=== PATIENT | male | born 1975 | race Two or more races ===

== ENCOUNTER 2021-05-16 15:10 | Emergency (ER) | payer MEDICAID ==
[~2021-05-16] VITALS: Ht 177.8 cm; Wt 113.4 kg
[2021-05-16 16:10] LABS: Basophils # (auto) 0.1 10 ^3/uL (0-0.2); Basophils % (auto) 0.4 % (0.0-2.0); Eosinophils # (auto) 0.1 10 ^3/uL (0-0.8); Eosinophils % (auto) 0.9 % (0.0-7.0); Hematocrit 47.4 % (41.0-53.0); Hemoglobin 15.8 g/dL (13.5-17.5); Lymphocytes # (auto) 2.1 10 ^3/uL (0.4-5.4); Lymphocytes % (auto) 16.4 % (10.0-50.0); Mean Corpuscular Hemoglobin 30.9 pg (28.0-32.0); Mean Corpuscular Hgb Conc. 33.4 g/dL (32.0-36.0); Mean Corpuscular Volume 92.6 fL (80.0-100.0); Monocytes # (auto) 1.1 10 ^3/uL (0-1.3); Monocytes % (auto) 8.3 % (0.0-12.0); Neutrophils # (auto) 9.7 10 ^3/uL (1.6-8.6); Red Blood Cells 5.12 10^6/uL (4.5-5.90); Red Cell Distribution Width 13.1 % (11.8-14.3); White Blood Cell 13.1 10^3/uL (4.4-10.8)
[2021-05-16 16:24] LABS: Albumin 3.4 g/dL (3.4-5.0); Calcium 9.1 mg/dL (8.5-10.1); Potassium 4.3 mmol/L (3.5-5.1)
[2021-05-16 16:27] LABS: BUN/Creatinine Ratio 15.5; Bilirubin, Total 0.3 mg/dL (0.2-1.0); Total Protein 7.4 g/dL (6.4-8.2)
[2021-05-16 18:35] VITALS: BP 152/100
== END 2021-05-16 19:27 | disposition home or self-care (01) ==
LOC: ER 15:10
DX: R10.32 Left lower quadrant pain (principal); D72.829 Elevated white blood cell count, unspecified; F17.210 Nicotine dependence, cigarettes, uncomplicated
CPT/HCPCS: 36415; 74176; 80053; 83690; 85025

== ENCOUNTER 2022-04-21 10:51 | Inpatient (IN) | payer MEDICAID ==
[2022-04-21] VITALS (13 sets, daily range): BP systolic 91–109; BP diastolic 56–75
[~2022-04-21] VITALS: Ht 182.9 cm; Wt 102.9 kg
[2022-04-21] MEDS ORDERED: ACETAMINOPHEN 500 MG TAB PO ONE ×2 (11:30→21:11)
[2022-04-21] MEDS ORDERED: SODIUM CHLORIDE 0.9% 1,000 ML IV ONE (12:00)
[2022-04-21 12:15] LABS: Basophils # (auto) 0 10 ^3/uL (0-0.2); Basophils % (auto) 0.4 % (0.0-2.0); Eosinophils # (auto) 0 10 ^3/uL (0-0.8); Hematocrit 48.2 % (41.0-53.0); Hemoglobin 15.1 g/dL (13.5-17.5); Lymphocytes # (auto) 1.1 10 ^3/uL (0.4-5.4); Lymphocytes % (auto) 24.9 % (10.0-50.0); Mean Corpuscular Hemoglobin 29.1 pg (28.0-32.0); Mean Corpuscular Hgb Conc. 31.5 g/dL (32.0-36.0); Mean Corpuscular Volume 92.4 fL (80.0-100.0); Monocytes # (auto) 0.6 10 ^3/uL (0-1.3); Monocytes % (auto) 14.2 % (0.0-12.0); Neutrophils # (auto) 2.6 10 ^3/uL (1.6-8.6); Neutrophils % (auto) 60.5 % (37.0-80.0); Nucleated Red Blood Cells % 0.2 %; Red Blood Cells 5.21 10^6/uL (4.5-5.90); Red Cell Distribution Width 13.5 % (11.8-14.3); White Blood Cell 4.2 10^3/uL (4.4-10.8)
[2022-04-21 12:18] LABS: Albumin 3.2 g/dL (3.4-5.0); Calcium 8.1 mg/dL (8.5-10.1); Magnesium 2.1 mg/dL (1.6-2.6); Potassium 3.7 mmol/L (3.5-5.1)
[2022-04-21 12:22] LABS: BUN/Creatinine Ratio 11.4; Bilirubin, Total 0.4 mg/dL (0.2-1.0); Total Protein 7.3 g/dL (6.4-8.2)
[2022-04-21 13:09] LABS: Urine Bacteria FEW /hpf (None Seen); Urine Blood 1+ /uL (Negative); Urine Mucus FEW (None Seen); Urine Specific Gravity 1.023 (1.001-1.035); Urine WBC 1 /hpf (0 - 3)
[2022-04-21] MEDS ORDERED: ENOXAPARIN SOD 60 MG/0.6 ML SYRINGE SC ONE (13:15)
[2022-04-21] MEDS: FUROSEMIDE 20 MG/2 ML VIAL IV ONE ×2 (13:15→13:56)
[2022-04-21] MEDS ORDERED: ASPirin-EC 81 mg tab PO ONE (13:15)
[2022-04-21 13:22] LABS: INR 0.98 (0.9-1.15); Partial Thromboplastin Time 28.2 sec (24.6-33.4)
[2022-04-21 13:29] LABS: Alcohol, Urine < 3.0 mg/dL (0-10); Amphetamine Screen, Urine NEGATIVE (NEGATIVE); Barbiturate Scree,Urine NEGATIVE (NEGATIVE); Benzodiazephine Screen, Urine NEGATIVE (NEGATIVE); Cannabinoid Screen, Urine POSITIVE (NEGATIVE); Cocaine Screen, Urine NEGATIVE (NEGATIVE); Opiate Scree,Urine NEGATIVE (NEGATIVE); Phencyclidine Screen, Urine NEGATIVE (NEGATIVE)
[2022-04-21] MEDS ORDERED: REMDESIVIR PER PHARMACY 0 ML IV SCH (14:30)
[2022-04-21] MEDS: SODIUM CHLORIDE 0.9% 1,000 ML IV SCH (14:57)
[2022-04-21] MEDS ORDERED: REMDESIVIR 200 MG in NS 210ml LOADING DOSE ADULT IV ONE (15:00)
[2022-04-21 15:01] LABS: Lactic Acid w/Reflex 2.2 mmol/L (0.4-2.0)
[2022-04-21] MEDS: REMDESIVIR 100mg 100 MG in SODIUM CHL 0.9% 230 ML IV SCH (16:18)
[2022-04-21] MEDS: ALBUTEROL SULF HFA 90MCG INH 200DOSE IN PRN ×2 (16:43→22:03)
[2022-04-21] MEDS ORDERED: METH10T PO (18:53)
[2022-04-21] MEDS: ACETAMINOPHEN 500 MG TAB PO PRN (21:16)
[2022-04-21] MEDS: BUDESONIDE (INHALATION) 180 MCG IH IN SCH (22:03)
[2022-04-21] MEDS: ENOXAPARIN SOD 40 MG/0.4 ML SYRINGE SC SCH (22:03)
[2022-04-21] MEDS ORDERED: FLUO60TA7 PO (22:42)
[2022-04-21] MEDS ORDERED: CLOZ25TA PO (22:42)
[2022-04-21] MEDS ORDERED: ATOR20TA50 PO (22:42)
[2022-04-22] VITALS (28 sets, daily range): BP systolic 90–116; BP diastolic 56–75
[2022-04-22 04:06] LABS: Basophils # (auto) 0 10 ^3/uL (0-0.2); Basophils % (auto) 0.2 % (0.0-2.0); Eosinophils # (auto) 0 10 ^3/uL (0-0.8); Hematocrit 46.2 % (41.0-53.0); Hemoglobin 14.6 g/dL (13.5-17.5); Lymphocytes # (auto) 1.6 10 ^3/uL (0.4-5.4); Lymphocytes % (auto) 35.5 % (10.0-50.0); Mean Corpuscular Hemoglobin 28.9 pg (28.0-32.0); Mean Corpuscular Hgb Conc. 31.6 g/dL (32.0-36.0); Mean Corpuscular Volume 91.3 fL (80.0-100.0); Monocytes # (auto) 0.2 10 ^3/uL (0-1.3); Monocytes % (auto) 5.6 % (0.0-12.0); Neutrophils # (auto) 2.6 10 ^3/uL (1.6-8.6); Neutrophils % (auto) 58.7 % (37.0-80.0); Nucleated Red Blood Cells % 0.1 %; Red Blood Cells 5.06 10^6/uL (4.5-5.90); Red Cell Distribution Width 13.5 % (11.8-14.3); White Blood Cell 4.4 10^3/uL (4.4-10.8)
[2022-04-22 04:13] LABS: Albumin 2.7 g/dL (3.4-5.0); Calcium 7.8 mg/dL (8.5-10.1); Potassium 3.8 mmol/L (3.5-5.1)
[2022-04-22 04:15] LABS: BUN/Creatinine Ratio 18.2
[2022-04-22 04:18] LABS: Bilirubin, Total 0.6 mg/dL (0.2-1.0); Total Protein 6.3 g/dL (6.4-8.2)
[2022-04-22] MEDS ORDERED: FUROSEMIDE 20 MG/2 ML VIAL IV ONE ×2 (10:00→16:45)
[2022-04-22] MEDS: ZINC SULFATE 220mg CAP or TAB PO SCH (10:00)
[2022-04-22] MEDS ORDERED: ENOXAPARIN SOD 40 MG/0.4 ML SYRINGE SC SCH (10:00)
[2022-04-22] MEDS: CHOLECALCIFEROL (VITD3) 2,000 UNIT CAP/TAB PO SCH (10:00)
[2022-04-22] MEDS: ASCORBIC ACID 1,000 MG TAB PO SCH (10:00)
[2022-04-22] MEDS: DexAMETHasone SOD PHOS 10MG/1ML VIAL INJ IV SCH (10:22)
[2022-04-22] MEDS: ENOXAPARIN SOD 40 MG/0.4 ML SYRINGE SC SCH ×2 (10:22→22:08)
[2022-04-22] MEDS: AZITHROMYCIN 500MG/ 250ML 250 ML IV SCH (10:23)
[2022-04-22] MEDS: SODIUM CHLORIDE 0.9% 1,000 ML IV SCH (10:23)
[2022-04-22] MEDS ORDERED: cefTRIAXone 1GM/50ML D5W 50 ML IV ONE (11:30)
[2022-04-22] MEDS ORDERED: VANCOMYCIN PER PHARMACY 0 MG IV SCH (11:30)
[2022-04-22] MEDS ORDERED: VANCOMYCIN 1GM/250ML 250 ML IV ONE (12:00)
[2022-04-22 14:01] LABS: Cholesterol 62 mg/dL (< 200); HDL Cholesterol 25 mg/dL (40-59); LDL Cholesterol 36 mg/dL (< 100); Triglycerides 71 mg/dL (< 150)
[2022-04-22] MEDS: REMDESIVIR 100mg 100 MG in SODIUM CHL 0.9% 230 ML IV SCH (15:39)
[2022-04-22] MEDS: ALBUTEROL SULF 2.5 MG/0.5ML(0.5%) NEB SOLN NEB SCH (18:09)
[2022-04-22] MEDS: IPRATROPIUM BROM 0.5 MG/2.5ML INH SOL NEB SCH (18:09)
[2022-04-22] MEDS: VANCOMYCIN 1GM/250ML 250 ML IV SCH (20:47)
[2022-04-22] MEDS: BUDESONIDE (INHALATION) 180 MCG IH IN SCH (22:00)
[2022-04-22] MEDS ORDERED: CLOZAPINE 100 MG PO SCH (22:00)
[2022-04-22] MEDS: ACETYLCYSTEINE 20%(200MG/ML) SOL 4ML NEB SCH (22:21)
[2022-04-22] MEDS: ALBUTEROL SULF 2.5 MG/0.5ML(0.5%) NEB SOLN NEB PRN (22:21)
[2022-04-23] VITALS (75 sets, daily range): BP systolic 90–161; BP diastolic 51–104
[2022-04-23] MEDS: ALBUTEROL SULF 2.5 MG/0.5ML(0.5%) NEB SOLN NEB SCH ×4 (00:18→19:05)
[2022-04-23] MEDS: IPRATROPIUM BROM 0.5 MG/2.5ML INH SOL NEB SCH ×4 (00:18→19:05)
[2022-04-23 04:17] LABS: Basophils # (auto) 0 10 ^3/uL (0-0.2); Basophils % (auto) 0.1 % (0.0-2.0); Eosinophils # (auto) 0 10 ^3/uL (0-0.8); Hematocrit 44.7 % (41.0-53.0); Lymphocytes # (auto) 1.3 10 ^3/uL (0.4-5.4); Lymphocytes % (auto) 18.9 % (10.0-50.0); Mean Corpuscular Hemoglobin 30.1 pg (28.0-32.0); Mean Corpuscular Hgb Conc. 33.5 g/dL (32.0-36.0); Monocytes # (auto) 0.5 10 ^3/uL (0-1.3); Monocytes % (auto) 7.2 % (0.0-12.0); Neutrophils # (auto) 5.1 10 ^3/uL (1.6-8.6); Neutrophils % (auto) 73.8 % (37.0-80.0); Nucleated Red Blood Cells % 0.1 %; Red Blood Cells 4.97 10^6/uL (4.5-5.90); Red Cell Distribution Width 13.1 % (11.8-14.3); White Blood Cell 6.9 10^3/uL (4.4-10.8)
[2022-04-23 04:40] LABS: Albumin 2.4 g/dL (3.4-5.0); BUN/Creatinine Ratio 28.1; Calcium 8.6 mg/dL (8.5-10.1); Potassium 3.8 mmol/L (3.5-5.1)
[2022-04-23 04:42] LABS: Bilirubin, Total 0.5 mg/dL (0.2-1.0); Total Protein 6.3 g/dL (6.4-8.2)
[2022-04-23] MEDS: VANCOMYCIN 1GM/250ML 250 ML IV SCH ×2 (05:14→14:16)
[2022-04-23] MEDS: ACETYLCYSTEINE 20%(200MG/ML) SOL 4ML NEB SCH ×3 (06:33→22:46)
[2022-04-23] MEDS: NOREPINEPHRINE 8 MG/250ML KIT 250 ML IV SCH (08:30)
[2022-04-23] MEDS ORDERED: fentaNYL Drip 2500mCg/250mlNS 250 ML IV SCH (08:30)
[2022-04-23] MEDS ORDERED: ROCURONIUM 10MG/ML 10ML VIAL IV ONE (08:30)
[2022-04-23] MEDS ORDERED: ETOMIDATE (2MG/ML) 20ML VIAL IV ONE (08:30)
[2022-04-23] MEDS ORDERED: PROPOFOL 100 ML IV ONE (09:19)
[2022-04-23] MEDS: BUDESONIDE (INHALATION) 180 MCG IH IN SCH ×2 (10:00→22:00)
[2022-04-23] MEDS: CLOZAPINE 100 MG PO SCH ×2 (10:00→22:00)
[2022-04-23] MEDS ORDERED: METHADONE HCL 10 MG TAB PO SCH (10:00)
[2022-04-23] MEDS ORDERED: PROPOFOL 200 ML IV ONE (10:19)
[2022-04-23] MEDS: MIDAZOLAM DRIP 50 mg/50mL 50 ML IV SCH ×3 (10:29→21:30)
[2022-04-23] MEDS: cefTRIAXone 1GM/50ML D5W 50 ML IV SCH (10:30)
[2022-04-23] MEDS: DexAMETHasone SOD PHOS 10MG/1ML VIAL INJ IV SCH (10:34)
[2022-04-23] MEDS: FUROSEMIDE 20 MG/2 ML VIAL IV SCH (10:35)
[2022-04-23] MEDS: AZITHROMYCIN 500MG/ 250ML 250 ML IV SCH (10:35)
[2022-04-23] MEDS: FLUoxetine HCL 20 MG CAP PO SCH (10:36)
[2022-04-23] MEDS: ZINC SULFATE 220mg CAP or TAB PO SCH (10:36)
[2022-04-23] MEDS: CHOLECALCIFEROL (VITD3) 2,000 UNIT CAP/TAB PO SCH (10:36)
[2022-04-23] MEDS: ATORVASTATIN 20 MG TAB PO SCH (10:36)
[2022-04-23] MEDS: ASCORBIC ACID 1,000 MG TAB PO SCH (10:36)
[2022-04-23] MEDS: ENOXAPARIN SOD 40 MG/0.4 ML SYRINGE SC SCH ×2 (10:37→22:00)
[2022-04-23] MEDS: PROPOFOL 100 ML IV SCH ×4 (10:45→21:30)
[2022-04-23] MEDS ORDERED: ATRACURIUM BESYLATE 1,000 MG in D5W 5% 150 ML IV SCH (13:00)
[2022-04-23] MEDS: ROCURONIUM 10MG/ML 10ML VIAL IV SCH ×3 (14:00→18:00)
[2022-04-23] MEDS: ROCURONIUM BROMIDE 1,000 MG in D5W 5% 150 ML IV SCH (14:15)
[2022-04-23] MEDS: fentaNYL Drip 2500mCg/250mlNS 250 ML IV SCH ×2 (14:16→17:13)
[2022-04-23] MEDS: REMDESIVIR 100mg 100 MG in SODIUM CHL 0.9% 230 ML IV SCH (17:16)
[2022-04-23] MEDS: SODIUM CHLOR 0.9% PF (SALINE LOCK) 10ML VIAL/SYR IV SCH (22:00)
[2022-04-23] MEDS: ALBUTEROL SULF 2.5 MG/0.5ML(0.5%) NEB SOLN NEB PRN (22:46)
[2022-04-24] VITALS (105 sets, daily range): BP systolic 83–125; BP diastolic 49–72
[2022-04-24] MEDS: PROPOFOL 100 ML IV SCH ×4 (00:39→23:37)
[2022-04-24] MEDS: IPRATROPIUM BROM 0.5 MG/2.5ML INH SOL NEB SCH ×4 (00:51→18:40)
[2022-04-24] MEDS: ALBUTEROL SULF 2.5 MG/0.5ML(0.5%) NEB SOLN NEB SCH ×4 (00:51→18:40)
[2022-04-24] MEDS: fentaNYL Drip 2500mCg/250mlNS 250 ML IV SCH ×2 (01:08→09:09)
[2022-04-24] MEDS: MIDAZOLAM DRIP 50 mg/50mL 50 ML IV SCH ×3 (01:30→23:00)
[2022-04-24] MEDS: VANCOMYCIN 1GM/250ML 250 ML IV SCH ×2 (03:00→13:51)
[2022-04-24] MEDS: ROCURONIUM BROMIDE 1,000 MG in D5W 5% 150 ML IV SCH (03:46)
[2022-04-24 04:41] LABS: Basophils # (auto) 0 10 ^3/uL (0-0.2); Basophils % (auto) 0.3 % (0.0-2.0); Eosinophils # (auto) 0 10 ^3/uL (0-0.8); Hematocrit 43.3 % (41.0-53.0); Hemoglobin 14.9 g/dL (13.5-17.5); Lymphocytes # (auto) 1.1 10 ^3/uL (0.4-5.4); Lymphocytes % (auto) 15.9 % (10.0-50.0); Mean Corpuscular Hemoglobin 30.7 pg (28.0-32.0); Mean Corpuscular Hgb Conc. 34.4 g/dL (32.0-36.0); Mean Corpuscular Volume 89.4 fL (80.0-100.0); Monocytes # (auto) 0.5 10 ^3/uL (0-1.3); Monocytes % (auto) 7.4 % (0.0-12.0); Neutrophils # (auto) 5.3 10 ^3/uL (1.6-8.6); Neutrophils % (auto) 76.4 % (37.0-80.0); Nucleated Red Blood Cells % 0.1 %; Red Blood Cells 4.85 10^6/uL (4.5-5.90); Red Cell Distribution Width 13.2 % (11.8-14.3); White Blood Cell 6.9 10^3/uL (4.4-10.8)
[2022-04-24 05:01] LABS: Albumin 2.3 g/dL (3.4-5.0); Calcium 8.2 mg/dL (8.5-10.1); Potassium 3.5 mmol/L (3.5-5.1)
[2022-04-24 05:04] LABS: BUN/Creatinine Ratio 26.9; Bilirubin, Total 0.7 mg/dL (0.2-1.0); Total Protein 5.8 g/dL (6.4-8.2)
[2022-04-24] MEDS: ACETYLCYSTEINE 20%(200MG/ML) SOL 4ML NEB SCH ×3 (06:13→18:40)
[2022-04-24] MEDS: NOREPINEPHRINE 8 MG/250ML KIT 250 ML IV SCH (08:30)
[2022-04-24] MEDS: cefTRIAXone 1GM/50ML D5W 50 ML IV SCH (09:04)
[2022-04-24] MEDS: ASCORBIC ACID 1,000 MG TAB PO SCH (09:06)
[2022-04-24] MEDS: FLUoxetine HCL 20 MG CAP PO SCH (09:06)
[2022-04-24] MEDS: ZINC SULFATE 220mg CAP or TAB PO SCH (09:06)
[2022-04-24] MEDS: CHOLECALCIFEROL (VITD3) 2,000 UNIT CAP/TAB PO SCH (09:06)
[2022-04-24] MEDS: SODIUM CHLOR 0.9% PF (SALINE LOCK) 10ML VIAL/SYR IV SCH ×2 (09:07→22:10)
[2022-04-24] MEDS: ATORVASTATIN 20 MG TAB PO SCH (09:07)
[2022-04-24] MEDS: PANTOPRAZOLE 40 MG/10 ML VIAL INJ IV SCH (09:07)
[2022-04-24] MEDS: DexAMETHasone SOD PHOS 10MG/1ML VIAL INJ IV SCH (09:07)
[2022-04-24] MEDS: FUROSEMIDE 20 MG/2 ML VIAL IV SCH (09:08)
[2022-04-24] MEDS: ENOXAPARIN SOD 40 MG/0.4 ML SYRINGE SC SCH ×2 (09:08→22:10)
[2022-04-24] MEDS: AZITHROMYCIN 500MG/ 250ML 250 ML IV SCH (09:08)
[2022-04-24] MEDS: CLOZAPINE 100 MG PO SCH ×2 (10:00→22:10)
[2022-04-24] MEDS: METHADONE HCL GT SCH (10:00)
[2022-04-24] MEDS: BUDESONIDE (INHALATION) 180 MCG IH IN SCH (10:00)
[2022-04-24] MEDS ORDERED: METO25TA93 PO (14:03)
[2022-04-24] MEDS ORDERED: FURO40TA4 PO (14:03)
[2022-04-24] MEDS ORDERED: FERR-20 PO (14:03)
[2022-04-24] MEDS ORDERED: OMEP20TA PO (14:03)
[2022-04-24] MEDS ORDERED: INSU1INJ19 SC (14:03)
[2022-04-24] MEDS ORDERED: SIMV-13 PO (14:03)
[2022-04-24] MEDS ORDERED: INSREG3 IV (14:03)
[2022-04-24] MEDS ORDERED: CIPR500T4 PO (14:03)
[2022-04-24] MEDS ORDERED: LISI-716 PO (14:03)
[2022-04-24] MEDS: ALBUTEROL SULF 2.5 MG/0.5ML(0.5%) NEB SOLN NEB PRN (14:51)
[2022-04-24] MEDS: REMDESIVIR 100mg 100 MG in SODIUM CHL 0.9% 230 ML IV SCH (16:52)
[2022-04-25] VITALS (106 sets, daily range): BP systolic 81–123; BP diastolic 32–73
[2022-04-25] MEDS: IPRATROPIUM BROM 0.5 MG/2.5ML INH SOL NEB SCH ×4 (00:36→18:19)
[2022-04-25] MEDS: ALBUTEROL SULF 2.5 MG/0.5ML(0.5%) NEB SOLN NEB SCH ×4 (00:37→18:19)
[2022-04-25] MEDS: fentaNYL Drip 2500mCg/250mlNS 250 ML IV SCH ×3 (01:23→22:12)
[2022-04-25] MEDS: PROPOFOL 100 ML IV SCH ×8 (02:01→22:17)
[2022-04-25] MEDS: MIDAZOLAM DRIP 50 mg/50mL 50 ML IV SCH ×5 (03:01→22:52)
[2022-04-25 04:47] LABS: Albumin 2.5 g/dL (3.4-5.0); Calcium 7.8 mg/dL (8.5-10.1); Potassium 3.3 mmol/L (3.5-5.1)
[2022-04-25 04:50] LABS: Bilirubin, Total 0.6 mg/dL (0.2-1.0); Total Protein 5.8 g/dL (6.4-8.2)
[2022-04-25 05:26] LABS: Hemoglobin 14.4 g/dL (13.5-17.5); Mean Corpuscular Hgb Conc. 32.8 g/dL (32.0-36.0); Mean Corpuscular Volume 91.4 fL (80.0-100.0); Red Blood Cells 4.81 10^6/uL (4.5-5.90); Red Cell Distribution Width 13.7 % (11.8-14.3); White Blood Cell 8.7 10^3/uL (4.4-10.8)
[2022-04-25 05:31] LABS: Basophils % (manual) 0 (0.0-2.0); Eosinophils % (manual) 0 (0-7); Myelocytes % 0; Reactive Lymphocytes 0
[2022-04-25 07:23] LABS: Band Neutrophils % (manual) 6; Blast Cells 1; Lymphocytes % (manual) 14 (10.0-50.0); Metamyelocytes % 4; Monocytes % (manual) 4 (0-12); Promyelocytes % 1
[2022-04-25] MEDS: ACETYLCYSTEINE 20%(200MG/ML) SOL 4ML NEB SCH ×3 (07:36→18:19)
[2022-04-25] MEDS: NOREPINEPHRINE 8 MG/250ML KIT 250 ML IV SCH (08:30)
[2022-04-25] MEDS ORDERED: POTASSIUM CHL 20MEQ/100ML 100 ML IV ONE (09:15)
[2022-04-25] MEDS: METHADONE HCL GT SCH ×2 (09:49→16:45)
[2022-04-25] MEDS: DexAMETHasone SOD PHOS 10MG/1ML VIAL INJ IV SCH (09:49)
[2022-04-25] MEDS: cefTRIAXone 1GM/50ML D5W 50 ML IV SCH (09:49)
[2022-04-25] MEDS: FUROSEMIDE 20 MG/2 ML VIAL IV SCH (09:49)
[2022-04-25] MEDS: PANTOPRAZOLE 40 MG/10 ML VIAL INJ IV SCH (09:49)
[2022-04-25] MEDS: AZITHROMYCIN 500MG/ 250ML 250 ML IV SCH (09:50)
[2022-04-25] MEDS: CLOZAPINE 100 MG PO SCH ×2 (09:50→22:04)
[2022-04-25] MEDS: ATORVASTATIN 20 MG TAB PO SCH (09:50)
[2022-04-25] MEDS: ZINC SULFATE 220mg CAP or TAB PO SCH (09:50)
[2022-04-25] MEDS: ENOXAPARIN SOD 40 MG/0.4 ML SYRINGE SC SCH ×2 (09:50→22:03)
[2022-04-25] MEDS: SODIUM CHLOR 0.9% PF (SALINE LOCK) 10ML VIAL/SYR IV SCH ×2 (09:50→22:04)
[2022-04-25] MEDS: CHOLECALCIFEROL (VITD3) 2,000 UNIT CAP/TAB PO SCH (09:51)
[2022-04-25] MEDS: ASCORBIC ACID 1,000 MG TAB PO SCH (09:51)
[2022-04-25] MEDS: FLUoxetine HCL 20 MG CAP PO SCH (09:51)
[2022-04-25] MEDS ORDERED: DEXTROSE (50%) 50ML SYRG IV PRN (13:30)
[2022-04-25] MEDS ORDERED: Glucerna 1.2 Cal 1Liter BOTTLE PEG SCH (13:45)
[2022-04-25] MEDS ORDERED: SENNA 8.6 MG TAB PO PRN (13:45)
[2022-04-25] MEDS: ACCU-CHEK COMFORT CURVE STRIP VI SCH ×2 (18:00→23:41)
[2022-04-25] MEDS: InsuLIN REG 1unit/0.01ml Soln (100units/ml) SC SCH ×2 (18:00→23:56)
[2022-04-26] VITALS (105 sets, daily range): BP systolic 79–116; BP diastolic 41–74
[2022-04-26] MEDS: PROPOFOL 100 ML IV SCH ×10 (00:41→22:52)
[2022-04-26] MEDS: ALBUTEROL SULF 2.5 MG/0.5ML(0.5%) NEB SOLN NEB SCH ×4 (00:56→18:36)
[2022-04-26] MEDS: IPRATROPIUM BROM 0.5 MG/2.5ML INH SOL NEB SCH ×4 (00:57→18:36)
[2022-04-26 03:32] LABS: Hematocrit 40.5 % (41.0-53.0); Mean Corpuscular Hemoglobin 30.9 pg (28.0-32.0); Mean Corpuscular Hgb Conc. 34.6 g/dL (32.0-36.0); Mean Corpuscular Volume 89.2 fL (80.0-100.0); Red Blood Cells 4.54 10^6/uL (4.5-5.90); Red Cell Distribution Width 13.5 % (11.8-14.3); White Blood Cell 11.7 10^3/uL (4.4-10.8)
[2022-04-26 03:41] LABS: Basophils % (manual) 0 (0.0-2.0); Blast Cells 0; Eosinophils % (manual) 0 (0-7); Reactive Lymphocytes 0
[2022-04-26 03:56] LABS: Calcium 7.8 mg/dL (8.5-10.1)
[2022-04-26] MEDS: MIDAZOLAM DRIP 50 mg/50mL 50 ML IV SCH ×4 (03:57→22:51)
[2022-04-26 04:23] LABS: Potassium 2.8 mmol/L (3.5-5.1)
[2022-04-26] MEDS: ACCU-CHEK COMFORT CURVE STRIP VI SCH ×3 (05:44→18:00)
[2022-04-26] MEDS: InsuLIN REG 1unit/0.01ml Soln (100units/ml) SC SCH ×3 (06:02→18:53)
[2022-04-26] MEDS: POTASSIUM CHL 20MEQ/100ML 100 ML IV SCH ×2 (06:12→08:14)
[2022-04-26 06:16] LABS: BUN/Creatinine Ratio 24.6
[2022-04-26 06:59] LABS: Band Neutrophils % (manual) 4; Lymphocytes % (manual) 15 (10.0-50.0); Metamyelocytes % 2; Monocytes % (manual) 13 (0-12); Myelocytes % 3; Promyelocytes % 1
[2022-04-26] MEDS: ACETYLCYSTEINE 20%(200MG/ML) SOL 4ML NEB SCH ×3 (07:00→18:36)
[2022-04-26] MEDS: NOREPINEPHRINE 8 MG/250ML KIT 250 ML IV SCH ×2 (08:30→14:00)
[2022-04-26] MEDS: cefTRIAXone 1GM/50ML D5W 50 ML IV SCH (08:59)
[2022-04-26] MEDS ORDERED: POTASSIUM CHL 20MEQ/100ML 100 ML IV ONE (10:00)
[2022-04-26] MEDS: AZITHROMYCIN 500MG/ 250ML 250 ML IV SCH (10:03)
[2022-04-26] MEDS: CHOLECALCIFEROL (VITD3) 2,000 UNIT CAP/TAB PO SCH (10:05)
[2022-04-26] MEDS: FUROSEMIDE 20 MG/2 ML VIAL IV SCH (10:05)
[2022-04-26] MEDS: ENOXAPARIN SOD 40 MG/0.4 ML SYRINGE SC SCH ×2 (10:06→21:58)
[2022-04-26] MEDS: FLUoxetine HCL 20 MG CAP PO SCH (10:06)
[2022-04-26] MEDS: ATORVASTATIN 20 MG TAB PO SCH (10:06)
[2022-04-26] MEDS: DexAMETHasone SOD PHOS 10MG/1ML VIAL INJ IV SCH (10:06)
[2022-04-26] MEDS: DOCUSATE ORAL LIQUID 100 MG/10 ML UD GT SCH (10:07)
[2022-04-26] MEDS: SODIUM CHLOR 0.9% PF (SALINE LOCK) 10ML VIAL/SYR IV SCH ×2 (10:07→21:57)
[2022-04-26] MEDS: PANTOPRAZOLE 40 MG/10 ML VIAL INJ IV SCH (10:07)
[2022-04-26] MEDS: ASCORBIC ACID 1,000 MG TAB PO SCH (10:07)
[2022-04-26] MEDS: ZINC SULFATE 220mg CAP or TAB PO SCH (10:07)
[2022-04-26] MEDS: CLOZAPINE 100 MG PO SCH ×2 (10:08→21:58)
[2022-04-26] MEDS: METHADONE HCL GT SCH (10:08)
[2022-04-26] MEDS ORDERED: levoFLOXacin 750MG 150 ML IV ONE (11:15)
[2022-04-26] MEDS: fentaNYL Drip 2500mCg/250mlNS 250 ML IV SCH (13:45)
[2022-04-26] MEDS ORDERED: IPRATROPIUM BROM 0.5 MG/2.5ML INH SOL ONE (14:21)
[2022-04-26] MEDS ORDERED: ALBUTEROL SULF 2.5 MG/0.5ML(0.5%) NEB SOLN ONE (14:21)
[2022-04-26] MEDS ORDERED: VANCOMYCIN PER PHARMACY 0 MG IV ONE (15:00)
[2022-04-26 15:01] LABS: BUN/Creatinine Ratio 22.6; Calcium 7.9 mg/dL (8.5-10.1); Potassium 4.3 mmol/L (3.5-5.1)
[2022-04-26] MEDS ORDERED: VANCOMYCIN PER PHARMACY 0 MG IV SCH (15:30)
[2022-04-26] MEDS: VANCOMYCIN 1GM/250ML 250 ML IV SCH (16:34)
[2022-04-27] VITALS (100 sets, daily range): BP systolic 86–127; BP diastolic 47–78
[2022-04-27] MEDS: IPRATROPIUM BROM 0.5 MG/2.5ML INH SOL NEB SCH ×4 (00:05→20:14)
[2022-04-27] MEDS: ALBUTEROL SULF 2.5 MG/0.5ML(0.5%) NEB SOLN NEB SCH ×4 (00:05→20:14)
[2022-04-27] MEDS: InsuLIN REG 1unit/0.01ml Soln (100units/ml) SC SCH ×4 (00:30→18:13)
[2022-04-27 01:48] LABS: Albumin 2.4 g/dL (3.4-5.0); BUN/Creatinine Ratio 28.2; Calcium 7.8 mg/dL (8.5-10.1); Potassium 4.4 mmol/L (3.5-5.1)
[2022-04-27] MEDS: VANCOMYCIN 1GM/250ML 250 ML IV SCH ×2 (02:10→12:47)
[2022-04-27] MEDS: PROPOFOL 100 ML IV SCH ×4 (02:11→22:43)
[2022-04-27] MEDS: MIDAZOLAM DRIP 50 mg/50mL 50 ML IV SCH (05:23)
[2022-04-27] MEDS: ACCU-CHEK COMFORT CURVE STRIP VI SCH ×4 (05:58→18:01)
[2022-04-27] MEDS: ACETYLCYSTEINE 20%(200MG/ML) SOL 4ML NEB SCH ×2 (06:31→13:40)
[2022-04-27] MEDS: DexAMETHasone SOD PHOS 10MG/1ML VIAL INJ IV SCH (09:28)
[2022-04-27] MEDS: DOCUSATE ORAL LIQUID 100 MG/10 ML UD GT SCH (09:28)
[2022-04-27] MEDS: FUROSEMIDE 20 MG/2 ML VIAL IV SCH (09:30)
[2022-04-27] MEDS: levoFLOXacin 750MG 150 ML IV SCH (09:30)
[2022-04-27] MEDS: ZINC SULFATE 220mg CAP or TAB PO SCH (09:31)
[2022-04-27] MEDS: PANTOPRAZOLE 40 MG/10 ML VIAL INJ IV SCH (09:31)
[2022-04-27] MEDS: SODIUM CHLOR 0.9% PF (SALINE LOCK) 10ML VIAL/SYR IV SCH ×2 (09:31→21:43)
[2022-04-27] MEDS: ENOXAPARIN SOD 40 MG/0.4 ML SYRINGE SC SCH ×2 (09:32→21:46)
[2022-04-27] MEDS: POTASSIUM EFFERVESENT TAB 25 MEQ PO SCH (09:32)
[2022-04-27] MEDS: ATORVASTATIN 20 MG TAB PO SCH (09:32)
[2022-04-27] MEDS: CHOLECALCIFEROL (VITD3) 2,000 UNIT CAP/TAB PO SCH (09:32)
[2022-04-27] MEDS: ASCORBIC ACID 1,000 MG TAB PO SCH (09:32)
[2022-04-27] MEDS: FLUoxetine HCL 20 MG CAP PO SCH (09:32)
[2022-04-27] MEDS: fentaNYL Drip 2500mCg/250mlNS 250 ML IV SCH (09:42)
[2022-04-27] MEDS ORDERED: CLOZAPINE 100 MG PO SCH (10:00)
[2022-04-27] MEDS: CLOZAPINE 100 MG PO SCH ×2 (12:46→21:43)
[2022-04-27] MEDS: METHADONE HCL GT SCH (12:46)
[2022-04-28] VITALS (102 sets, daily range): BP systolic 88–110; BP diastolic 46–85
[2022-04-28] MEDS: InsuLIN REG 1unit/0.01ml Soln (100units/ml) SC SCH ×4 (00:31→17:57)
[2022-04-28] MEDS: PROPOFOL 100 ML IV SCH ×10 (00:43→21:07)
[2022-04-28] MEDS: ACETYLCYSTEINE 20%(200MG/ML) SOL 4ML NEB SCH ×3 (00:52→13:13)
[2022-04-28] MEDS: IPRATROPIUM BROM 0.5 MG/2.5ML INH SOL NEB SCH ×4 (00:53→18:52)
[2022-04-28] MEDS: ALBUTEROL SULF 2.5 MG/0.5ML(0.5%) NEB SOLN NEB SCH ×4 (00:53→18:51)
[2022-04-28 04:02] LABS: Calcium 7.9 mg/dL (8.5-10.1)
[2022-04-28 04:06] LABS: BUN/Creatinine Ratio 35.8
[2022-04-28] MEDS: MIDAZOLAM DRIP 50 mg/50mL 50 ML IV SCH ×2 (05:08→16:43)
[2022-04-28] MEDS: ACCU-CHEK COMFORT CURVE STRIP VI SCH ×4 (05:56→17:58)
[2022-04-28] MEDS: fentaNYL Drip 2500mCg/250mlNS 250 ML IV SCH (06:15)
[2022-04-28] MEDS: NOREPINEPHRINE 8 MG/250ML KIT 250 ML IV SCH (08:30)
[2022-04-28] MEDS: levoFLOXacin 750MG 150 ML IV SCH (09:39)
[2022-04-28] MEDS: PANTOPRAZOLE 40 MG/10 ML VIAL INJ IV SCH (09:39)
[2022-04-28] MEDS: FUROSEMIDE 20 MG/2 ML VIAL IV SCH (09:40)
[2022-04-28] MEDS: DexAMETHasone SOD PHOS 10MG/1ML VIAL INJ IV SCH (09:40)
[2022-04-28] MEDS: ENOXAPARIN SOD 40 MG/0.4 ML SYRINGE SC SCH ×2 (09:40→22:02)
[2022-04-28] MEDS: CHOLECALCIFEROL (VITD3) 2,000 UNIT CAP/TAB PO SCH (09:41)
[2022-04-28] MEDS: ATORVASTATIN 20 MG TAB PO SCH (09:41)
[2022-04-28] MEDS: ZINC SULFATE 220mg CAP or TAB PO SCH (09:41)
[2022-04-28] MEDS: ASCORBIC ACID 1,000 MG TAB PO SCH (09:41)
[2022-04-28] MEDS: FLUoxetine HCL 20 MG CAP PO SCH (09:41)
[2022-04-28] MEDS: CLOZAPINE 100 MG PO SCH ×2 (09:42→22:01)
[2022-04-28] MEDS: SODIUM CHLOR 0.9% PF (SALINE LOCK) 10ML VIAL/SYR IV SCH ×2 (09:43→22:01)
[2022-04-28] MEDS: DOCUSATE ORAL LIQUID 100 MG/10 ML UD GT SCH (09:43)
[2022-04-28] MEDS: METHADONE HCL GT SCH (10:00)
[2022-04-28] MEDS: POTASSIUM EFFERVESENT TAB 25 MEQ PO SCH (10:00)
[2022-04-28] MEDS: VANCOMYCIN 1GM/250ML 250 ML IV SCH (13:07)
[2022-04-28] MEDS: METHADONE HCL 10 MG TAB NG SCH (13:17)
[2022-04-29] VITALS (89 sets, daily range): BP systolic 84–134; BP diastolic 53–94
[2022-04-29] MEDS: ALBUTEROL SULF 2.5 MG/0.5ML(0.5%) NEB SOLN NEB SCH ×4 (00:33→18:41)
[2022-04-29] MEDS: ACETYLCYSTEINE 20%(200MG/ML) SOL 4ML NEB SCH ×4 (00:33→18:41)
[2022-04-29] MEDS: IPRATROPIUM BROM 0.5 MG/2.5ML INH SOL NEB SCH ×4 (00:33→18:41)
[2022-04-29] MEDS: PROPOFOL 100 ML IV SCH ×8 (00:47→22:39)
[2022-04-29] MEDS: MIDAZOLAM DRIP 50 mg/50mL 50 ML IV SCH ×4 (00:48→22:38)
[2022-04-29] MEDS: fentaNYL Drip 2500mCg/250mlNS 250 ML IV SCH ×2 (00:49→18:51)
[2022-04-29] MEDS: VANCOMYCIN 1GM/250ML 250 ML IV SCH ×2 (01:39→15:32)
[2022-04-29 04:12] LABS: Basophils # (auto) 0.1 10 ^3/uL (0-0.2); Basophils % (auto) 0.6 % (0.0-2.0); Eosinophils # (auto) 0.1 10 ^3/uL (0-0.8); Eosinophils % (auto) 0.9 % (0.0-7.0); Hematocrit 40.8 % (41.0-53.0); Hemoglobin 13.4 g/dL (13.5-17.5); Lymphocytes # (auto) 2.7 10 ^3/uL (0.4-5.4); Lymphocytes % (auto) 18.3 % (10.0-50.0); Mean Corpuscular Hemoglobin 29.8 pg (28.0-32.0); Mean Corpuscular Volume 90.4 fL (80.0-100.0); Monocytes # (auto) 1.2 10 ^3/uL (0-1.3); Monocytes % (auto) 8.3 % (0.0-12.0); Neutrophils # (auto) 10.5 10 ^3/uL (1.6-8.6); Neutrophils % (auto) 71.9 % (37.0-80.0); Nucleated Red Blood Cells % 0.1 %; Red Blood Cells 4.51 10^6/uL (4.5-5.90); Red Cell Distribution Width 13.5 % (11.8-14.3); White Blood Cell 14.6 10^3/uL (4.4-10.8)
[2022-04-29] MEDS: InsuLIN REG 1unit/0.01ml Soln (100units/ml) SC SCH ×4 (06:00→17:49)
[2022-04-29] MEDS: ACCU-CHEK COMFORT CURVE STRIP VI SCH ×4 (06:22→17:46)
[2022-04-29] MEDS: POTASSIUM EFFERVESENT TAB 25 MEQ PO SCH (10:00)
[2022-04-29] MEDS: METHADONE HCL GT SCH (10:00)
[2022-04-29] MEDS: DOCUSATE ORAL LIQUID 100 MG/10 ML UD GT SCH (10:04)
[2022-04-29] MEDS: ENOXAPARIN SOD 40 MG/0.4 ML SYRINGE SC SCH ×2 (10:04→21:24)
[2022-04-29] MEDS: PANTOPRAZOLE 40 MG/10 ML VIAL INJ IV SCH (10:05)
[2022-04-29] MEDS: DexAMETHasone SOD PHOS 10MG/1ML VIAL INJ IV SCH (10:05)
[2022-04-29] MEDS: FUROSEMIDE 20 MG/2 ML VIAL IV SCH (10:05)
[2022-04-29] MEDS: levoFLOXacin 750MG 150 ML IV SCH (10:06)
[2022-04-29] MEDS: METHADONE HCL 10 MG TAB NG SCH (10:12)
[2022-04-29] MEDS: ATORVASTATIN 20 MG TAB PO SCH (10:13)
[2022-04-29] MEDS: ASCORBIC ACID 1,000 MG TAB PO SCH (10:13)
[2022-04-29] MEDS: ZINC SULFATE 220mg CAP or TAB PO SCH (10:13)
[2022-04-29] MEDS: CHOLECALCIFEROL (VITD3) 2,000 UNIT CAP/TAB PO SCH (10:13)
[2022-04-29] MEDS: CLOZAPINE 100 MG PO SCH ×2 (10:14→21:24)
[2022-04-29] MEDS: FLUoxetine HCL 20 MG CAP PO SCH (10:14)
[2022-04-29] MEDS: SODIUM CHLOR 0.9% PF (SALINE LOCK) 10ML VIAL/SYR IV SCH ×2 (10:15→21:24)
[2022-04-29 16:30] LABS: Basophils # (auto) 0 10 ^3/uL (0-0.2); Basophils % (auto) 0.2 % (0.0-2.0); Eosinophils # (auto) 0.1 10 ^3/uL (0-0.8); Eosinophils % (auto) 0.6 % (0.0-7.0); Hematocrit 35.2 % (41.0-53.0); Hemoglobin 12.2 g/dL (13.5-17.5); Lymphocytes # (auto) 1.2 10 ^3/uL (0.4-5.4); Lymphocytes % (auto) 10.2 % (10.0-50.0); Mean Corpuscular Hemoglobin 32.9 pg (28.0-32.0); Mean Corpuscular Hgb Conc. 34.6 g/dL (32.0-36.0); Mean Corpuscular Volume 95.1 fL (80.0-100.0); Monocytes # (auto) 0.6 10 ^3/uL (0-1.3); Monocytes % (auto) 5.1 % (0.0-12.0); Neutrophils # (auto) 10.1 10 ^3/uL (1.6-8.6); Neutrophils % (auto) 83.9 % (37.0-80.0); Nucleated Red Blood Cells % 0.1 %; Red Cell Distribution Width 14.2 % (11.8-14.3)
[2022-04-29 18:48] LABS: Blood Urea Nitrogen 32 mg/dL (7-18); Calcium 7.9 mg/dL (8.5-10.1)
[2022-04-29 18:52] LABS: Alkaline Phosphatase 45 U/L (45-117); Total Protein 6.6 g/dL (6.4-8.2)
[2022-04-29 19:11] LABS: Alanine Aminotransferase 55 U/L (16-61); Anion Gap 4 (5-15); Aspartate Aminotransferase 33 U/L (15-37); BUN/Creatinine Ratio 33.3; Carbon Dioxide 29 mmol/L (21-32); Chloride 104 mmol/L (98-107); GFR African American 108 mL/min; GFR Non-African American 89 mL/min; Glucose 152 mg/dL (74-106); Potassium 5.2 mmol/L (3.5-5.1); Sodium 137 mmol/L (136-145)
[2022-04-29 19:12] LABS: Albumin 2.5 g/dL (3.4-5.0); Bilirubin, Total 0.5 mg/dL (0.2-1.0)
[2022-04-29] MEDS ORDERED: InsuLIN REG 1unit/0.01ml Soln (100units/ml) IV ONE (19:45)
[2022-04-29] MEDS ORDERED: DEXTROSE (50%) 50ML SYRG IV ONE (19:45)
[2022-04-29] MEDS ORDERED: ALBUTEROL SULF 2.5 MG/0.5ML(0.5%) NEB SOLN NEB ONE (19:45)
[2022-04-30] VITALS (91 sets, daily range): BP systolic 88–118; BP diastolic 49–76
[2022-04-30] MEDS: IPRATROPIUM BROM 0.5 MG/2.5ML INH SOL NEB SCH ×4 (00:41→19:34)
[2022-04-30] MEDS: ALBUTEROL SULF 2.5 MG/0.5ML(0.5%) NEB SOLN NEB SCH ×4 (00:41→19:35)
[2022-04-30] MEDS: PROPOFOL 100 ML IV SCH ×6 (01:23→14:43)
[2022-04-30 04:19] LABS: Basophils # (auto) 0.2 10 ^3/uL (0-0.2); Basophils % (auto) 0.9 % (0.0-2.0); Eosinophils # (auto) 0.2 10 ^3/uL (0-0.8); Eosinophils % (auto) 1.1 % (0.0-7.0); Hemoglobin 13.3 g/dL (13.5-17.5); Lymphocytes # (auto) 2.8 10 ^3/uL (0.4-5.4); Lymphocytes % (auto) 14.9 % (10.0-50.0); Mean Corpuscular Hemoglobin 29.7 pg (28.0-32.0); Mean Corpuscular Hgb Conc. 33.3 g/dL (32.0-36.0); Mean Corpuscular Volume 89.3 fL (80.0-100.0); Monocytes # (auto) 1.5 10 ^3/uL (0-1.3); Monocytes % (auto) 8.2 % (0.0-12.0); Neutrophils # (auto) 14.1 10 ^3/uL (1.6-8.6); Neutrophils % (auto) 74.9 % (37.0-80.0); Nucleated Red Blood Cells % 0.1 %; Red Blood Cells 4.49 10^6/uL (4.5-5.90); Red Cell Distribution Width 13.4 % (11.8-14.3); White Blood Cell 18.9 10^3/uL (4.4-10.8)
[2022-04-30 05:27] LABS: Calcium 8.3 mg/dL (8.5-10.1); Potassium 4.1 mmol/L (3.5-5.1)
[2022-04-30] MEDS: VANCOMYCIN 1GM/250ML 250 ML IV SCH (05:47)
[2022-04-30] MEDS: InsuLIN REG 1unit/0.01ml Soln (100units/ml) SC SCH ×5 (06:00→23:01)
[2022-04-30] MEDS: ACETYLCYSTEINE 20%(200MG/ML) SOL 4ML NEB SCH ×3 (06:16→19:35)
[2022-04-30] MEDS: ACCU-CHEK COMFORT CURVE STRIP VI SCH ×5 (06:22→23:01)
[2022-04-30] MEDS: levoFLOXacin 750MG 150 ML IV SCH (09:30)
[2022-04-30] MEDS: PANTOPRAZOLE 40 MG/10 ML VIAL INJ IV SCH (09:30)
[2022-04-30] MEDS: FUROSEMIDE 20 MG/2 ML VIAL IV SCH (09:30)
[2022-04-30] MEDS: DexAMETHasone SOD PHOS 10MG/1ML VIAL INJ IV SCH (09:31)
[2022-04-30] MEDS: DOCUSATE ORAL LIQUID 100 MG/10 ML UD GT SCH ×2 (09:31→23:07)
[2022-04-30] MEDS: ATORVASTATIN 20 MG TAB PO SCH (09:32)
[2022-04-30] MEDS: ASCORBIC ACID 1,000 MG TAB PO SCH (09:33)
[2022-04-30] MEDS: ZINC SULFATE 220mg CAP or TAB PO SCH (09:33)
[2022-04-30] MEDS: CHOLECALCIFEROL (VITD3) 2,000 UNIT CAP/TAB PO SCH (09:33)
[2022-04-30] MEDS: FLUoxetine HCL 20 MG CAP PO SCH (09:34)
[2022-04-30] MEDS: ENOXAPARIN SOD 40 MG/0.4 ML SYRINGE SC SCH ×2 (09:35→22:06)
[2022-04-30] MEDS: SODIUM CHLOR 0.9% PF (SALINE LOCK) 10ML VIAL/SYR IV SCH ×2 (09:35→22:06)
[2022-04-30] MEDS: CLOZAPINE 100 MG PO SCH ×3 (09:56→22:05)
[2022-04-30] MEDS: METHADONE HCL 10 MG TAB NG SCH ×2 (09:56→10:00)
[2022-04-30] MEDS: METHADONE HCL GT SCH (10:00)
[2022-04-30] MEDS: fentaNYL Drip 2500mCg/250mlNS 250 ML IV SCH (10:18)
[2022-04-30] MEDS ORDERED: FLEET ENEMA(ADULT) 135 ML PR ONE (11:30)
[2022-04-30] MEDS: NOREPINEPHRINE 8 MG/250ML KIT 250 ML IV SCH (20:00)
[2022-05-01] VITALS (68 sets, daily range): BP systolic 58–131; BP diastolic 48–83
[2022-05-01] MEDS: MIDAZOLAM DRIP 50 mg/50mL 50 ML IV SCH (02:36)
[2022-05-01] MEDS: fentaNYL Drip 2500mCg/250mlNS 250 ML IV SCH ×2 (02:37→17:12)
[2022-05-01 04:50] LABS: Hemoglobin 13.6 g/dL (13.5-17.5); Mean Corpuscular Hemoglobin 28.8 pg (28.0-32.0); Mean Corpuscular Hgb Conc. 31.7 g/dL (32.0-36.0); Red Blood Cells 4.73 10^6/uL (4.5-5.90); Red Cell Distribution Width 13.2 % (11.8-14.3); White Blood Cell 17.4 10^3/uL (4.4-10.8)
[2022-05-01 05:01] LABS: Basophils % (manual) 0 (0.0-2.0); Blast Cells 0; Eosinophils % (manual) 0 (0-7); Promyelocytes % 0; Reactive Lymphocytes 0
[2022-05-01 05:08] LABS: BUN/Creatinine Ratio 38.4; Calcium 8.9 mg/dL (8.5-10.1); Potassium 3.7 mmol/L (3.5-5.1)
[2022-05-01] MEDS: NOREPINEPHRINE 8 MG/250ML KIT 250 ML IV SCH (05:58)
[2022-05-01] MEDS: ACCU-CHEK COMFORT CURVE STRIP VI SCH ×3 (06:00→18:03)
[2022-05-01] MEDS: InsuLIN REG 1unit/0.01ml Soln (100units/ml) SC SCH ×3 (06:00→18:00)
[2022-05-01] MEDS: ALBUTEROL SULF 2.5 MG/0.5ML(0.5%) NEB SOLN NEB SCH ×3 (06:08→18:18)
[2022-05-01] MEDS: IPRATROPIUM BROM 0.5 MG/2.5ML INH SOL NEB SCH ×3 (06:08→18:19)
[2022-05-01] MEDS: ACETYLCYSTEINE 20%(200MG/ML) SOL 4ML NEB SCH ×3 (06:09→18:19)
[2022-05-01 07:55] LABS: Band Neutrophils % (manual) 5; Lymphocytes % (manual) 21 (10.0-50.0); Metamyelocytes % 3; Monocytes % (manual) 5 (0-12); Myelocytes % 5
[2022-05-01] MEDS: levoFLOXacin 750MG 150 ML IV SCH (09:30)
[2022-05-01] MEDS: METHADONE HCL 10 MG TAB NG SCH (09:31)
[2022-05-01] MEDS: CHOLECALCIFEROL (VITD3) 2,000 UNIT CAP/TAB PO SCH (09:32)
[2022-05-01] MEDS: ASCORBIC ACID 1,000 MG TAB PO SCH (09:32)
[2022-05-01] MEDS: FLUoxetine HCL 20 MG CAP PO SCH (09:32)
[2022-05-01] MEDS: ENOXAPARIN SOD 40 MG/0.4 ML SYRINGE SC SCH ×2 (09:32→22:00)
[2022-05-01] MEDS: ZINC SULFATE 220mg CAP or TAB PO SCH (09:32)
[2022-05-01] MEDS: ATORVASTATIN 20 MG TAB PO SCH (09:32)
[2022-05-01] MEDS: DexAMETHasone SOD PHOS 10MG/1ML VIAL INJ IV SCH (09:33)
[2022-05-01] MEDS: SODIUM CHLOR 0.9% PF (SALINE LOCK) 10ML VIAL/SYR IV SCH ×2 (09:33→22:00)
[2022-05-01] MEDS: FUROSEMIDE 20 MG/2 ML VIAL IV SCH (09:33)
[2022-05-01] MEDS: PANTOPRAZOLE 40 MG/10 ML VIAL INJ IV SCH (09:33)
[2022-05-01] MEDS: DOCUSATE ORAL LIQUID 100 MG/10 ML UD GT SCH (09:33)
[2022-05-01] MEDS: METHADONE HCL GT SCH (09:34)
[2022-05-01] MEDS: CLOZAPINE 100 MG PO SCH ×2 (09:34→22:00)
[2022-05-01] MEDS ORDERED: DOCUSATE ORAL LIQUID 100 MG/10 ML UD GT PRN (11:00)
[2022-05-01] MEDS: PROPOFOL 100 ML IV SCH (15:06)
[2022-05-02] VITALS (61 sets, daily range): BP systolic 81–141; BP diastolic 42–96
[2022-05-02] MEDS: PROPOFOL 100 ML IV SCH
[2022-05-02] MEDS: ACCU-CHEK COMFORT CURVE STRIP VI SCH ×3 (00:15→11:35)
[2022-05-02 04:56] LABS: Basophils # (auto) 0.1 10 ^3/uL (0-0.2); Basophils % (auto) 0.4 % (0.0-2.0); Eosinophils # (auto) 0.2 10 ^3/uL (0-0.8); Hematocrit 40.2 % (41.0-53.0); Lymphocytes # (auto) 4.1 10 ^3/uL (0.4-5.4); Lymphocytes % (auto) 26.4 % (10.0-50.0); Mean Corpuscular Hemoglobin 29.2 pg (28.0-32.0); Mean Corpuscular Hgb Conc. 32.3 g/dL (32.0-36.0); Mean Corpuscular Volume 90.3 fL (80.0-100.0); Monocytes # (auto) 1.1 10 ^3/uL (0-1.3); Monocytes % (auto) 7.3 % (0.0-12.0); Neutrophils # (auto) 10.2 10 ^3/uL (1.6-8.6); Neutrophils % (auto) 64.9 % (37.0-80.0); Nucleated Red Blood Cells % 0.1 %; Red Blood Cells 4.45 10^6/uL (4.5-5.90); Red Cell Distribution Width 13.5 % (11.8-14.3); White Blood Cell 15.7 10^3/uL (4.4-10.8)
[2022-05-02 05:05] LABS: BUN/Creatinine Ratio 44.9; Calcium 8.5 mg/dL (8.5-10.1); Potassium 3.1 mmol/L (3.5-5.1)
[2022-05-02] MEDS: ACETYLCYSTEINE 20%(200MG/ML) SOL 4ML NEB SCH ×3 (05:34→21:56)
[2022-05-02] MEDS: IPRATROPIUM BROM 0.5 MG/2.5ML INH SOL NEB SCH ×3 (05:34→21:55)
[2022-05-02] MEDS: ALBUTEROL SULF 2.5 MG/0.5ML(0.5%) NEB SOLN NEB SCH ×3 (05:34→21:55)
[2022-05-02] MEDS: InsuLIN REG 1unit/0.01ml Soln (100units/ml) SC SCH ×3 (06:00→11:35)
[2022-05-02] MEDS: MIDAZOLAM DRIP 50 mg/50mL 50 ML IV SCH (08:30)
[2022-05-02] MEDS: NOREPINEPHRINE 8 MG/250ML KIT 250 ML IV SCH (08:30)
[2022-05-02] MEDS: SODIUM CHLOR 0.9% PF (SALINE LOCK) 10ML VIAL/SYR IV SCH ×2 (10:00→22:16)
[2022-05-02] MEDS: METHADONE HCL GT SCH (10:00)
[2022-05-02] MEDS: CLOZAPINE 100 MG PO SCH ×2 (10:00→22:07)
[2022-05-02] MEDS: levoFLOXacin 750MG 150 ML IV SCH (11:11)
[2022-05-02] MEDS: DexAMETHasone SOD PHOS 10MG/1ML VIAL INJ IV SCH (11:12)
[2022-05-02] MEDS: PANTOPRAZOLE 40 MG/10 ML VIAL INJ IV SCH (11:12)
[2022-05-02] MEDS: FUROSEMIDE 20 MG/2 ML VIAL IV SCH (11:12)
[2022-05-02] MEDS: FLUoxetine HCL 20 MG CAP PO SCH (11:13)
[2022-05-02] MEDS: ZINC SULFATE 220mg CAP or TAB PO SCH (11:13)
[2022-05-02] MEDS: ASCORBIC ACID 1,000 MG TAB PO SCH (11:13)
[2022-05-02] MEDS: CHOLECALCIFEROL (VITD3) 2,000 UNIT CAP/TAB PO SCH (11:13)
[2022-05-02] MEDS: ATORVASTATIN 20 MG TAB PO SCH (11:14)
[2022-05-02] MEDS: METHADONE HCL 10 MG TAB NG SCH (11:14)
[2022-05-02] MEDS: ENOXAPARIN SOD 40 MG/0.4 ML SYRINGE SC SCH ×2 (11:16→22:14)
[2022-05-02] MEDS: POTASSIUM CHL 20MEQ/100ML 100 ML IV SCH ×2 (14:51→17:25)
[2022-05-02] MEDS: LORazepam 2MG/ML-1ML VIAL IV PRN (16:29)
[2022-05-03] VITALS (29 sets, daily range): BP systolic 89–139; BP diastolic 53–88
[2022-05-03] MEDS: LORazepam 2MG/ML-1ML VIAL IV PRN
[2022-05-03 06:23] LABS: BUN/Creatinine Ratio 39.1; Calcium 8.8 mg/dL (8.5-10.1); Potassium 3.3 mmol/L (3.5-5.1)
[2022-05-03 06:26] LABS: Basophils # (auto) 0 10 ^3/uL (0-0.2); Basophils % (auto) 0.2 % (0.0-2.0); Eosinophils # (auto) 0.2 10 ^3/uL (0-0.8); Eosinophils % (auto) 1.3 % (0.0-7.0); Hematocrit 41.4 % (41.0-53.0); Hemoglobin 13.5 g/dL (13.5-17.5); Lymphocytes # (auto) 4.4 10 ^3/uL (0.4-5.4); Lymphocytes % (auto) 26.4 % (10.0-50.0); Mean Corpuscular Hemoglobin 29.1 pg (28.0-32.0); Mean Corpuscular Hgb Conc. 32.5 g/dL (32.0-36.0); Mean Corpuscular Volume 89.3 fL (80.0-100.0); Monocytes # (auto) 1.4 10 ^3/uL (0-1.3); Monocytes % (auto) 8.2 % (0.0-12.0); Neutrophils # (auto) 10.7 10 ^3/uL (1.6-8.6); Neutrophils % (auto) 63.9 % (37.0-80.0); Red Blood Cells 4.64 10^6/uL (4.5-5.90); White Blood Cell 16.8 10^3/uL (4.4-10.8)
[2022-05-03] MEDS: MIDAZOLAM DRIP 50 mg/50mL 50 ML IV SCH (08:25)
[2022-05-03] MEDS: NOREPINEPHRINE 8 MG/250ML KIT 250 ML IV SCH (08:25)
[2022-05-03] MEDS: PROPOFOL 100 ML IV SCH (08:27)
[2022-05-03] MEDS: fentaNYL Drip 2500mCg/250mlNS 250 ML IV SCH (08:27)
[2022-05-03] MEDS: PANTOPRAZOLE 40 MG/10 ML VIAL INJ IV SCH (09:06)
[2022-05-03] MEDS: ENOXAPARIN SOD 40 MG/0.4 ML SYRINGE SC SCH ×2 (09:06→20:50)
[2022-05-03] MEDS: DexAMETHasone SOD PHOS 10MG/1ML VIAL INJ IV SCH (09:17)
[2022-05-03] MEDS: FLUoxetine HCL 20 MG CAP PO SCH (09:17)
[2022-05-03] MEDS: FUROSEMIDE 20 MG/2 ML VIAL IV SCH (09:17)
[2022-05-03] MEDS: ATORVASTATIN 20 MG TAB PO SCH (09:18)
[2022-05-03] MEDS: CHOLECALCIFEROL (VITD3) 2,000 UNIT CAP/TAB PO SCH (09:18)
[2022-05-03] MEDS: ZINC SULFATE 220mg CAP or TAB PO SCH (09:18)
[2022-05-03] MEDS: ASCORBIC ACID 1,000 MG TAB PO SCH (09:18)
[2022-05-03] MEDS: METHADONE HCL 10 MG TAB NG SCH (09:18)
[2022-05-03] MEDS: METHADONE HCL GT SCH (09:19)
[2022-05-03] MEDS: SODIUM CHLOR 0.9% PF (SALINE LOCK) 10ML VIAL/SYR IV SCH ×2 (09:20→20:50)
[2022-05-03] MEDS: CLOZAPINE 100 MG PO SCH ×2 (09:23→20:51)
[2022-05-03] MEDS: levoFLOXacin 750MG 150 ML IV SCH (09:24)
[2022-05-03] MEDS ORDERED: POTASSIUM EFFERVESENT TAB 25 MEQ PO ONE (09:45)
[2022-05-03] MEDS: IPRATROPIUM BROM 0.5 MG/2.5ML INH SOL NEB SCH ×3 (10:38→22:15)
[2022-05-03] MEDS: ACETYLCYSTEINE 20%(200MG/ML) SOL 4ML NEB SCH ×3 (10:40→22:16)
[2022-05-03] MEDS: ALBUTEROL SULF 2.5 MG/0.5ML(0.5%) NEB SOLN NEB SCH ×3 (10:42→22:16)
[2022-05-03] MEDS: LORazepam 0.5 MG TAB PO PRN (16:13)
[2022-05-04] VITALS (16 sets, daily range): BP systolic 87–120; BP diastolic 52–84
[2022-05-04] MEDS: LORazepam 2MG/ML-1ML VIAL IV PRN ×4 (01:15→22:28)
[2022-05-04] MEDS: ACETAMINOPHEN 500 MG TAB PO PRN (03:32)
[2022-05-04 04:44] LABS: Calcium 8.7 mg/dL (8.5-10.1); Potassium 3.8 mmol/L (3.5-5.1)
[2022-05-04 04:46] LABS: BUN/Creatinine Ratio 54.2
[2022-05-04 05:48] LABS: Basophils # (auto) 0 10 ^3/uL (0-0.2); Basophils % (auto) 0.3 % (0.0-2.0); Eosinophils # (auto) 0.1 10 ^3/uL (0-0.8); Eosinophils % (auto) 1.1 % (0.0-7.0); Hematocrit 41.3 % (41.0-53.0); Hemoglobin 13.3 g/dL (13.5-17.5); Lymphocytes # (auto) 4.5 10 ^3/uL (0.4-5.4); Lymphocytes % (auto) 37.3 % (10.0-50.0); Mean Corpuscular Hemoglobin 29.1 pg (28.0-32.0); Mean Corpuscular Hgb Conc. 32.3 g/dL (32.0-36.0); Monocytes # (auto) 1.1 10 ^3/uL (0-1.3); Neutrophils # (auto) 6.4 10 ^3/uL (1.6-8.6); Neutrophils % (auto) 52.3 % (37.0-80.0); Nucleated Red Blood Cells % 0.1 %; Red Blood Cells 4.58 10^6/uL (4.5-5.90); Red Cell Distribution Width 12.9 % (11.8-14.3); White Blood Cell 12.2 10^3/uL (4.4-10.8)
[2022-05-04] MEDS: ACETYLCYSTEINE 20%(200MG/ML) SOL 4ML NEB SCH ×3 (06:22→22:09)
[2022-05-04] MEDS: ALBUTEROL SULF 2.5 MG/0.5ML(0.5%) NEB SOLN NEB SCH ×3 (06:22→22:09)
[2022-05-04] MEDS: IPRATROPIUM BROM 0.5 MG/2.5ML INH SOL NEB SCH ×3 (07:01→22:09)
[2022-05-04] MEDS: ASCORBIC ACID 1,000 MG TAB PO SCH (08:41)
[2022-05-04] MEDS: FLUoxetine HCL 20 MG CAP PO SCH (08:41)
[2022-05-04] MEDS: ZINC SULFATE 220mg CAP or TAB PO SCH (08:41)
[2022-05-04] MEDS: PANTOPRAZOLE 40 MG/10 ML VIAL INJ IV SCH (08:41)
[2022-05-04] MEDS: CHOLECALCIFEROL (VITD3) 2,000 UNIT CAP/TAB PO SCH (08:41)
[2022-05-04] MEDS: METHADONE HCL 10 MG TAB NG SCH (08:42)
[2022-05-04] MEDS: ATORVASTATIN 20 MG TAB PO SCH (08:42)
[2022-05-04] MEDS: ENOXAPARIN SOD 40 MG/0.4 ML SYRINGE SC SCH ×2 (08:42→22:12)
[2022-05-04] MEDS: SODIUM CHLOR 0.9% PF (SALINE LOCK) 10ML VIAL/SYR IV SCH ×2 (08:43→21:22)
[2022-05-04] MEDS: CLOZAPINE 100 MG PO SCH ×2 (08:43→22:13)
[2022-05-04] MEDS: METHADONE HCL GT SCH (10:00)
[2022-05-04] MEDS: LORazepam 0.5 MG TAB PO PRN (10:55)
[2022-05-04] MEDS: MORPHINE SULFATE INJ 2 MG/ml SYRG IV PRN ×2 (14:27→21:19)
[2022-05-05] VITALS (24 sets, daily range): BP systolic 88–122; BP diastolic 58–79
[2022-05-05] MEDS: MORPHINE SULFATE INJ 2 MG/ml SYRG IV PRN ×2 (02:42→20:42)
[2022-05-05] MEDS: IPRATROPIUM BROM 0.5 MG/2.5ML INH SOL NEB SCH ×3 (05:59→21:57)
[2022-05-05] MEDS: ACETYLCYSTEINE 20%(200MG/ML) SOL 4ML NEB SCH ×3 (05:59→21:57)
[2022-05-05] MEDS: ALBUTEROL SULF 2.5 MG/0.5ML(0.5%) NEB SOLN NEB SCH ×3 (05:59→21:57)
[2022-05-05 08:49] LABS: Basophils # (auto) 0 10 ^3/uL (0-0.2); Basophils % (auto) 0.4 % (0.0-2.0); Eosinophils # (auto) 0.2 10 ^3/uL (0-0.8); Eosinophils % (auto) 2.2 % (0.0-7.0); Lymphocytes # (auto) 3.6 10 ^3/uL (0.4-5.4); Lymphocytes % (auto) 37.4 % (10.0-50.0); Mean Corpuscular Hemoglobin 30.3 pg (28.0-32.0); Mean Corpuscular Volume 89.2 fL (80.0-100.0); Monocytes # (auto) 0.8 10 ^3/uL (0-1.3); Monocytes % (auto) 7.9 % (0.0-12.0); Neutrophils # (auto) 5.1 10 ^3/uL (1.6-8.6); Neutrophils % (auto) 52.1 % (37.0-80.0); Nucleated Red Blood Cells % 0.1 %; Red Cell Distribution Width 12.9 % (11.8-14.3); White Blood Cell 9.7 10^3/uL (4.4-10.8)
[2022-05-05 08:58] LABS: Calcium 8.8 mg/dL (8.5-10.1); Potassium 3.5 mmol/L (3.5-5.1)
[2022-05-05] MEDS: ENOXAPARIN SOD 40 MG/0.4 ML SYRINGE SC SCH ×2 (09:43→20:42)
[2022-05-05] MEDS: PANTOPRAZOLE 40 MG/10 ML VIAL INJ IV SCH (09:43)
[2022-05-05] MEDS: ATORVASTATIN 20 MG TAB PO SCH (09:44)
[2022-05-05] MEDS: CHOLECALCIFEROL (VITD3) 2,000 UNIT CAP/TAB PO SCH (09:44)
[2022-05-05] MEDS: ASCORBIC ACID 1,000 MG TAB PO SCH (09:44)
[2022-05-05] MEDS: SODIUM CHLOR 0.9% PF (SALINE LOCK) 10ML VIAL/SYR IV SCH ×2 (09:46→20:43)
[2022-05-05] MEDS: FLUoxetine HCL 20 MG CAP PO SCH (09:47)
[2022-05-05] MEDS: CLOZAPINE 100 MG PO SCH ×2 (09:48→20:43)
[2022-05-05] MEDS: ZINC SULFATE 220mg CAP or TAB PO SCH (09:49)
[2022-05-05] MEDS: METHADONE HCL 10 MG TAB NG SCH (11:36)
[2022-05-05] MEDS: ACETAMINOPHEN 500 MG TAB PO PRN (18:41)
[2022-05-06] VITALS (21 sets, daily range): BP systolic 83–134; BP diastolic 48–80
[2022-05-06] MEDS: MORPHINE SULFATE INJ 2 MG/ml SYRG IV PRN ×4 (01:36→21:11)
[2022-05-06] MEDS: IPRATROPIUM BROM 0.5 MG/2.5ML INH SOL NEB SCH ×3 (07:24→21:40)
[2022-05-06] MEDS: ALBUTEROL SULF 2.5 MG/0.5ML(0.5%) NEB SOLN NEB SCH ×3 (07:24→21:40)
[2022-05-06] MEDS: ACETYLCYSTEINE 20%(200MG/ML) SOL 4ML NEB SCH ×3 (07:24→21:41)
[2022-05-06] MEDS: CLOZAPINE 100 MG PO SCH ×2 (10:00→21:09)
[2022-05-06] MEDS: SODIUM CHLOR 0.9% PF (SALINE LOCK) 10ML VIAL/SYR IV SCH ×2 (10:00→21:11)
[2022-05-06] MEDS: ENOXAPARIN SOD 40 MG/0.4 ML SYRINGE SC SCH ×2 (10:00→21:09)
[2022-05-06] MEDS: CHOLECALCIFEROL (VITD3) 2,000 UNIT CAP/TAB PO SCH (10:41)
[2022-05-06] MEDS: FLUoxetine HCL 20 MG CAP PO SCH (10:41)
[2022-05-06] MEDS: ZINC SULFATE 220mg CAP or TAB PO SCH (10:42)
[2022-05-06] MEDS: ATORVASTATIN 20 MG TAB PO SCH (10:42)
[2022-05-06] MEDS: ASCORBIC ACID 1,000 MG TAB PO SCH (10:42)
[2022-05-06] MEDS: METHADONE HCL 10 MG TAB NG SCH (10:42)
[2022-05-06] MEDS: PANTOPRAZOLE 40 MG TAB PO SCH (10:42)
[2022-05-07] VITALS (22 sets, daily range): BP systolic 96–144; BP diastolic 61–77
[2022-05-07] MEDS: MORPHINE SULFATE INJ 2 MG/ml SYRG IV PRN ×3 (03:19→16:17)
[2022-05-07] MEDS: LORazepam 0.5 MG TAB PO PRN ×2 (04:15→23:37)
[2022-05-07] MEDS: IPRATROPIUM BROM 0.5 MG/2.5ML INH SOL NEB SCH ×2 (07:14→21:56)
[2022-05-07] MEDS: ALBUTEROL SULF 2.5 MG/0.5ML(0.5%) NEB SOLN NEB SCH ×2 (07:14→22:00)
[2022-05-07] MEDS: ACETYLCYSTEINE 20%(200MG/ML) SOL 4ML NEB SCH ×2 (07:15→21:56)
[2022-05-07] MEDS: CLOZAPINE 100 MG PO SCH ×2 (10:08→22:11)
[2022-05-07] MEDS: CHOLECALCIFEROL (VITD3) 2,000 UNIT CAP/TAB PO SCH (10:16)
[2022-05-07] MEDS: ENOXAPARIN SOD 40 MG/0.4 ML SYRINGE SC SCH ×2 (10:16→22:11)
[2022-05-07] MEDS: METHADONE HCL 10 MG TAB NG SCH (10:16)
[2022-05-07] MEDS: ZINC SULFATE 220mg CAP or TAB PO SCH (10:16)
[2022-05-07] MEDS: FLUoxetine HCL 20 MG CAP PO SCH (10:16)
[2022-05-07] MEDS: ASCORBIC ACID 1,000 MG TAB PO SCH (10:17)
[2022-05-07] MEDS: SODIUM CHLOR 0.9% PF (SALINE LOCK) 10ML VIAL/SYR IV SCH ×2 (10:17→22:10)
[2022-05-07] MEDS: ATORVASTATIN 20 MG TAB PO SCH (10:17)
[2022-05-07] MEDS: PANTOPRAZOLE 40 MG TAB PO SCH (10:17)
[2022-05-07] MEDS ORDERED: MORPHINE SULFATE INJ 2 MG/ml SYRG IV ONE (19:45)
[2022-05-08] VITALS (22 sets, daily range): BP systolic 103–138; BP diastolic 55–92
[2022-05-08] MEDS: ACETYLCYSTEINE 20%(200MG/ML) SOL 4ML NEB SCH ×3 (06:55→19:40)
[2022-05-08] MEDS: IPRATROPIUM BROM 0.5 MG/2.5ML INH SOL NEB SCH ×3 (06:55→19:39)
[2022-05-08] MEDS: ALBUTEROL SULF 2.5 MG/0.5ML(0.5%) NEB SOLN NEB SCH ×3 (06:55→19:39)
[2022-05-08] MEDS: PANTOPRAZOLE 40 MG TAB PO SCH (10:18)
[2022-05-08] MEDS: ZINC SULFATE 220mg CAP or TAB PO SCH (10:19)
[2022-05-08] MEDS: ATORVASTATIN 20 MG TAB PO SCH (10:19)
[2022-05-08] MEDS: FLUoxetine HCL 20 MG CAP PO SCH (10:19)
[2022-05-08] MEDS: ASCORBIC ACID 1,000 MG TAB PO SCH (10:19)
[2022-05-08] MEDS: CHOLECALCIFEROL (VITD3) 2,000 UNIT CAP/TAB PO SCH (10:19)
[2022-05-08] MEDS: CLOZAPINE 100 MG PO SCH ×2 (10:20→22:00)
[2022-05-08] MEDS: SODIUM CHLOR 0.9% PF (SALINE LOCK) 10ML VIAL/SYR IV SCH ×2 (10:20→22:00)
[2022-05-08] MEDS: ENOXAPARIN SOD 40 MG/0.4 ML SYRINGE SC SCH ×2 (10:21→22:00)
[2022-05-08] MEDS: METHADONE HCL 10 MG TAB NG SCH (10:42)
[2022-05-08] MEDS: ACETAMINOPHEN 500 MG TAB PO PRN (13:34)
[2022-05-08] MEDS: OXYCODONE W/ ACETAMINOPHEN 5/325MG TABLET PO PRN (18:29)
[2022-05-09] VITALS (17 sets, daily range): BP systolic 103–145; BP diastolic 55–88
[2022-05-09] MEDS: OXYCODONE W/ ACETAMINOPHEN 5/325MG TABLET PO PRN ×3 (00:33→13:43)
[2022-05-09] MEDS: PANTOPRAZOLE 40 MG TAB PO SCH (09:23)
[2022-05-09] MEDS: METHADONE HCL 10 MG TAB NG SCH (09:23)
[2022-05-09] MEDS: FLUoxetine HCL 20 MG CAP PO SCH (09:24)
[2022-05-09] MEDS: ASCORBIC ACID 1,000 MG TAB PO SCH (09:24)
[2022-05-09] MEDS: CHOLECALCIFEROL (VITD3) 2,000 UNIT CAP/TAB PO SCH (09:24)
[2022-05-09] MEDS: ATORVASTATIN 20 MG TAB PO SCH (09:24)
[2022-05-09] MEDS: ENOXAPARIN SOD 40 MG/0.4 ML SYRINGE SC SCH (09:25)
[2022-05-09] MEDS: SODIUM CHLOR 0.9% PF (SALINE LOCK) 10ML VIAL/SYR IV SCH (09:25)
[2022-05-09] MEDS: IPRATROPIUM BROM 0.5 MG/2.5ML INH SOL NEB SCH (09:39)
[2022-05-09] MEDS: ALBUTEROL SULF 2.5 MG/0.5ML(0.5%) NEB SOLN NEB SCH (09:39)
[2022-05-09] MEDS: ACETYLCYSTEINE 20%(200MG/ML) SOL 4ML NEB SCH (09:40)
[2022-05-09] MEDS: ZINC SULFATE 220mg CAP or TAB PO SCH (09:55)
[2022-05-09] MEDS: CLOZAPINE 100 MG PO SCH (09:56)
== END 2022-05-09 17:10 | DRG 720 ==
LOC: EDBD 10:51 → ER 11:07 → TELE 14:13 → ICU WEST 15:38 → UNDODISIN 04-26 12:50 → DOU IN ICU 05-04 10:09
PROVIDERS: ADMIT Internal Medicine; ATTEND Internal Medicine Pulmonary Disease
PROC: 5A0945A Assistance with Respiratory Ventilation, 24-96 Consecutive Hours, High Flow/Velocity Cannula (ICD-10-PCS; 2022-04-21)
PROC: XW033E5 Introduction of Remdesivir Anti-infective into Peripheral Vein, Percutaneous Approach, New Technology Group 5 (ICD-10-PCS; 2022-04-21)
PROC: 5A1955Z Respiratory Ventilation, Greater than 96 Consecutive Hours (ICD-10-PCS; principal; 2022-04-23)
PROC: 5A09357 Assistance with Respiratory Ventilation, Less than 24 Consecutive Hours, Continuous Positive Airway Pressure (ICD-10-PCS; 2022-04-23)
PROC: 0BH17EZ Insertion of Endotracheal Airway into Trachea, Via Natural or Artificial Opening (ICD-10-PCS; 2022-04-23)
PROC: 02HV33Z Insertion of Infusion Device into Superior Vena Cava, Percutaneous Approach (ICD-10-PCS; 2022-04-23)
PROC: B548ZZA Ultrasonography of Superior Vena Cava, Guidance (ICD-10-PCS; 2022-04-23)
DX: A41.89 Other specified sepsis (principal); J96.01 Acute respiratory failure with hypoxia; J12.82 Pneumonia due to coronavirus disease 2019; R65.21 Severe sepsis with septic shock; U07.1 COVID-19; J15.5 Pneumonia due to Escherichia coli; I21.4 Non-ST elevation (NSTEMI) myocardial infarction; I12.9 Hypertensive chronic kidney disease with stage 1 through stage 4 chronic kidney disease, or unspecified chronic kidney disease; J98.11 Atelectasis; N18.30 Chronic kidney disease, stage 3 unspecified; E87.6 Hypokalemia; E88.09 Other disorders of plasma-protein metabolism, not elsewhere classified; F17.210 Nicotine dependence, cigarettes, uncomplicated; F20.9 Schizophrenia, unspecified; N17.9 Acute kidney failure, unspecified; F32.A Depression, unspecified; I51.4 Myocarditis, unspecified; E78.5 Hyperlipidemia, unspecified; F12.90 Cannabis use, unspecified, uncomplicated; R73.03 Prediabetes; Z86.19 Personal history of other infectious and parasitic diseases
CPT/HCPCS: 36415; 36569; 36600; 71045; 74018; 80048; 80053; 80061; 80069; 80202; 80307; 81001; 82728; 82805; 82962; 83036; 83605; 83735; 83880; 84132; 84443; 84484; 85007; 85025; 85027; 85379; 85610; 85730; 87040; 87070; 87077; 87081; 87186; 87205; 92610; 93005; 93306; 93970; 94002; 94003; 94640; 94660; 96360; 96372; 97116; 97163; 97530; C9113; G0378; J0696; J1100; J1815; J1956; J2250; J2704; J3480; J7060

== ENCOUNTER 2022-06-19 16:57 | Inpatient (IN) | payer MEDICAID ==
[~2022-06-19] VITALS: Ht 177.8 cm; Wt 99.1 kg
[~2022-06-19 16:57] MED LIST: ATOR20TA50 PO; CIPR500T4 PO; CLOZ25TA PO; FERR-20 PO; FLUO60TA7 PO; FURO40TA4 PO; INSREG3 IV; INSU1INJ19 SC; LISI-716 PO; METH10T PO; METO25TA93 PO; OMEP20TA PO; SIMV-13 PO
[2022-06-19] MEDS ORDERED: NOREPINEPHRINE 8 MG/250ML KIT 250 ML IV ONE (17:47)
[2022-06-19] MEDS: NOREPINEPHRINE 8 MG/250ML KIT 250 ML IV SCH (17:54)
[2022-06-19] MEDS ORDERED: cefTRIAXone 1GM/50ML D5W 50 ML IV ONE (18:30)
[2022-06-19] MEDS ORDERED: FUROSEMIDE 40 MG/4 ML VIAL IV ONE (18:30)
[2022-06-19] MEDS ORDERED: levoFLOXacin 500MG 100 ML IV ONE (18:30)
[2022-06-19] MEDS ORDERED: SODIUM CHLORIDE 0.9% 3,750 ML IV ONE (19:45)
[2022-06-19] MEDS ORDERED: PHENTOLAMINE MESYLATE 5 MG INJ VIAL SUBCUT ONE (20:45)
[2022-06-19 20:46] LABS: Hematocrit 34.5 % (41.0-53.0); Hemoglobin 11.5 g/dL (13.5-17.5); Mean Corpuscular Hemoglobin 29.5 pg (28.0-32.0); Mean Corpuscular Hgb Conc. 33.4 g/dL (32.0-36.0); Mean Corpuscular Volume 88.5 fL (80.0-100.0); Red Blood Cells 3.89 10^6/uL (4.5-5.90); Red Cell Distribution Width 13.8 % (11.8-14.3); White Blood Cell 8.6 10^3/uL (4.4-10.8)
[2022-06-19 20:52] LABS: Basophils % (manual) 0 (0.0-2.0); Blast Cells 0; Eosinophils % (manual) 0 (0-7); Metamyelocytes % 0; Myelocytes % 0; Promyelocytes % 0
[2022-06-19 20:53] LABS: Urine Amorphous Crystal FEW /hpf (None Seen); Urine Bacteria FEW /hpf (None Seen); Urine Mucus FEW (None Seen); Urine WBC 2 /hpf (0 - 3)
[2022-06-19 20:54] LABS: Urine Blood Negative /uL (Negative); Urine Specific Gravity 1.015 (1.001-1.035)
[2022-06-19 21:05] LABS: Albumin 2.6 g/dL (3.4-5.0); Calcium 8.3 mg/dL (8.5-10.1); Potassium 4.6 mmol/L (3.5-5.1)
[2022-06-19 21:09] LABS: BUN/Creatinine Ratio 15.6; Bilirubin, Total 0.5 mg/dL (0.2-1.0); Total Protein 6.1 g/dL (6.4-8.2)
[2022-06-19 22:17] LABS: Band Neutrophils % (manual) 2; Lymphocytes % (manual) 39 (10.0-50.0); Monocytes % (manual) 14 (0-12); Reactive Lymphocytes 1
[2022-06-19] MEDS ORDERED: ONDANSETRON HCL 4 MG/2 ML VIAL IV PRN (22:30)
[2022-06-19] MEDS ORDERED: ALBUTEROL SULF 2.5 MG/0.5ML(0.5%) NEB SOLN NEB PRN (22:30)
[2022-06-19] MEDS ORDERED: NITROGLYCERIN 0.4 MG SL TAB SL PRN (22:30)
[2022-06-19] MEDS ORDERED: MORPHINE SULFATE INJ 2 MG/ml SYRG IV PRN (22:30)
[2022-06-19] MEDS ORDERED: DEXTROSE (50%) 50ML SYRG IV PRN (22:30)
[2022-06-19 23:06] VITALS: BP 69/35
[2022-06-20] MEDS: AZITHROMYCIN 500MG/ 250ML 250 ML IV SCH ×2 (00:04→22:14)
[2022-06-20] MEDS: ACCU-CHEK COMFORT CURVE STRIP VI SCH ×4 (06:25→22:15)
[2022-06-20] MEDS: InsuLIN REG 1unit/0.01ml Soln (100units/ml) SC SCH ×4 (06:26→22:00)
[2022-06-20 07:07] LABS: Basophils # (auto) 0 10 ^3/uL (0-0.2); Basophils % (auto) 0.5 % (0.0-2.0); Eosinophils # (auto) 0.3 10 ^3/uL (0-0.8); Eosinophils % (auto) 3.6 % (0.0-7.0); Hematocrit 35.5 % (41.0-53.0); Hemoglobin 11.7 g/dL (13.5-17.5); Lymphocytes # (auto) 2.3 10 ^3/uL (0.4-5.4); Lymphocytes % (auto) 32.1 % (10.0-50.0); Mean Corpuscular Hemoglobin 29.6 pg (28.0-32.0); Mean Corpuscular Volume 89.6 fL (80.0-100.0); Monocytes # (auto) 1.1 10 ^3/uL (0-1.3); Monocytes % (auto) 15.9 % (0.0-12.0); Neutrophils # (auto) 3.4 10 ^3/uL (1.6-8.6); Neutrophils % (auto) 47.9 % (37.0-80.0); Nucleated Red Blood Cells % 0.1 %; Red Blood Cells 3.96 10^6/uL (4.5-5.90); Red Cell Distribution Width 13.4 % (11.8-14.3); White Blood Cell 7.2 10^3/uL (4.4-10.8)
[2022-06-20 07:24] LABS: Albumin 2.5 g/dL (3.4-5.0); Calcium 8.3 mg/dL (8.5-10.1); Potassium 4.4 mmol/L (3.5-5.1)
[2022-06-20 07:28] LABS: BUN/Creatinine Ratio 25.1; Bilirubin, Total 0.5 mg/dL (0.2-1.0); Total Protein 5.8 g/dL (6.4-8.2)
[2022-06-20] MEDS: cefTRIAXone 1GM/50ML D5W 50 ML IV SCH (08:35)
[2022-06-20] MEDS ORDERED: ALBUTEROL SULF 2.5 MG/0.5ML(0.5%) NEB SOLN NEB PRN (17:00)
[2022-06-20] MEDS: ACETAMINOPHEN 325 MG TAB PO PRN (17:36)
[2022-06-20] MEDS: NOREPINEPHRINE 8 MG/250ML KIT 250 ML IV SCH (17:54)
[2022-06-20] MEDS: IPRATROPIUM BROM 0.5 MG/2.5ML INH SOL NEB PRN (18:40)
[2022-06-20 21:38] VITALS: BP 122/78
[2022-06-20 22:05] VITALS: BP 122/78
[2022-06-21] VITALS (7 sets, daily range): BP systolic 103–125; BP diastolic 62–80
[2022-06-21] MEDS: ACCU-CHEK COMFORT CURVE STRIP VI SCH ×2 (06:21→12:03)
[2022-06-21] MEDS: InsuLIN REG 1unit/0.01ml Soln (100units/ml) SC SCH ×2 (06:21→11:30)
[2022-06-21 06:41] LABS: Basophils # (auto) 0 10 ^3/uL (0-0.2); Basophils % (auto) 0.3 % (0.0-2.0); Eosinophils # (auto) 0.7 10 ^3/uL (0-0.8); Eosinophils % (auto) 8.1 % (0.0-7.0); Hemoglobin 12.2 g/dL (13.5-17.5); Lymphocytes # (auto) 2.6 10 ^3/uL (0.4-5.4); Lymphocytes % (auto) 31.3 % (10.0-50.0); Mean Corpuscular Hemoglobin 29.9 pg (28.0-32.0); Monocytes # (auto) 0.7 10 ^3/uL (0-1.3); Monocytes % (auto) 8.4 % (0.0-12.0); Neutrophils # (auto) 4.3 10 ^3/uL (1.6-8.6); Neutrophils % (auto) 51.9 % (37.0-80.0); Nucleated Red Blood Cells % 0.1 %; Red Blood Cells 4.09 10^6/uL (4.5-5.90); Red Cell Distribution Width 13.3 % (11.8-14.3); White Blood Cell 8.3 10^3/uL (4.4-10.8)
[2022-06-21 06:49] LABS: Calcium 9.2 mg/dL (8.5-10.1); Potassium 4.4 mmol/L (3.5-5.1)
[2022-06-21 06:52] LABS: BUN/Creatinine Ratio 31.9
[2022-06-21] MEDS: cefTRIAXone 1GM/50ML D5W 50 ML IV SCH (09:23)
[2022-06-21] MEDS: PANTOPRAZOLE 40 MG TAB PO SCH (09:23)
[2022-06-21] MEDS ORDERED: PANT40T PO (10:59)
[2022-06-21] MEDS: ACETAMINOPHEN 325 MG TAB PO PRN ×2 (13:06→20:45)
[2022-06-21] MEDS: METHADONE HCL 10 MG TAB PO SCH (14:11)
[2022-06-21] MEDS: AZITHROMYCIN 500MG/ 250ML 250 ML IV SCH (21:37)
[2022-06-21] MEDS: CLOZAPINE 100 MG PO SCH (21:38)
[2022-06-21] MEDS ORDERED: HYDROcodone-ACET 5/325MG TAB PO ONE (23:00)
[2022-06-22] MEDS: METHADONE HCL 10 MG TAB PO SCH ×2 (02:14→15:00)
[2022-06-22 05:00] VITALS: BP 121/73
[2022-06-22 08:00] VITALS: BP 114/73
[2022-06-22 09:06] VITALS: BP 152/70
[2022-06-22] MEDS: ACETAMINOPHEN 325 MG TAB PO PRN ×2 (09:28→17:48)
[2022-06-22] MEDS: ENOXAPARIN SOD 40 MG/0.4 ML SYRINGE SC SCH (09:28)
[2022-06-22] MEDS: FLUoxetine HCL 20 MG CAP PO SCH (09:29)
[2022-06-22] MEDS: AZITHROMYCIN 250 MG TAB PO SCH (09:29)
[2022-06-22] MEDS: ATORVASTATIN 20 MG TAB PO SCH (09:30)
[2022-06-22] MEDS: CLOZAPINE 100 MG PO SCH ×2 (09:30→21:40)
[2022-06-22] MEDS: PANTOPRAZOLE 40 MG TAB PO SCH (09:30)
[2022-06-22] MEDS ORDERED: METHADONE HCL 10 MG TAB PO SCH (10:00)
[2022-06-22] MEDS: ALBUTEROL SULF 2.5 MG/0.5ML(0.5%) NEB SOLN NEB SCH ×2 (12:05→18:32)
[2022-06-22 12:40] VITALS: BP 136/71
[2022-06-22 17:03] VITALS: BP 142/85
[2022-06-22 22:00] VITALS: BP 115/74
[2022-06-23] VITALS (8 sets, daily range): BP systolic 94–128; BP diastolic 54–88
[2022-06-23] MEDS: METHADONE HCL 10 MG TAB PO SCH ×2 (01:52→14:06)
[2022-06-23] MEDS: IPRATROPIUM BROM 0.5 MG/2.5ML INH SOL NEB PRN ×2 (06:28→11:47)
[2022-06-23] MEDS: ALBUTEROL SULF 2.5 MG/0.5ML(0.5%) NEB SOLN NEB SCH ×3 (06:28→18:19)
[2022-06-23] MEDS: CLOZAPINE 100 MG PO SCH (10:00)
[2022-06-23] MEDS: FLUoxetine HCL 20 MG CAP PO SCH (10:07)
[2022-06-23] MEDS: PANTOPRAZOLE 40 MG TAB PO SCH (10:08)
[2022-06-23] MEDS: ATORVASTATIN 20 MG TAB PO SCH (10:08)
[2022-06-23] MEDS: ENOXAPARIN SOD 40 MG/0.4 ML SYRINGE SC SCH (10:08)
[2022-06-23] MEDS: AZITHROMYCIN 250 MG TAB PO SCH (10:08)
[2022-06-23] MEDS: methylPREDNISolone SOD SUCC 40 MG/ML VL IV SCH (17:41)
[2022-06-23] MEDS: IPRATROPIUM BROM 0.5 MG/2.5ML INH SOL NEB SCH (18:19)
[2022-06-23] MEDS: ACETAMINOPHEN 325 MG TAB PO PRN (20:56)
[2022-06-24] MEDS: methylPREDNISolone SOD SUCC 40 MG/ML VL IV SCH ×5 (00:17→23:44)
[2022-06-24] MEDS: CLOZAPINE 100 MG PO SCH ×3 (00:17→20:48)
[2022-06-24] MEDS: TEMAZEPAM 15 MG CAP PO PRN ×2 (00:18→20:47)
[2022-06-24] MEDS: METHADONE HCL 10 MG TAB PO SCH ×2 (02:27→14:02)
[2022-06-24 05:00] VITALS: BP 128/84
[2022-06-24] MEDS: IPRATROPIUM BROM 0.5 MG/2.5ML INH SOL NEB SCH ×4 (06:03→18:01)
[2022-06-24] MEDS: ALBUTEROL SULF 2.5 MG/0.5ML(0.5%) NEB SOLN NEB SCH ×3 (06:03→18:01)
[2022-06-24 07:40] VITALS: BP 121/77
[2022-06-24 09:00] VITALS: BP 121/77
[2022-06-24] MEDS: cefTRIAXone 1GM/50ML D5W 50 ML IV SCH (09:27)
[2022-06-24] MEDS: ATORVASTATIN 20 MG TAB PO SCH (09:28)
[2022-06-24] MEDS: PANTOPRAZOLE 40 MG TAB PO SCH (09:28)
[2022-06-24] MEDS: ENOXAPARIN SOD 40 MG/0.4 ML SYRINGE SC SCH (09:28)
[2022-06-24] MEDS: AZITHROMYCIN 250 MG TAB PO SCH (09:28)
[2022-06-24] MEDS: FLUoxetine HCL 20 MG CAP PO SCH (09:28)
[2022-06-24] MEDS: ACETAMINOPHEN 325 MG TAB PO PRN ×3 (09:29→23:43)
[2022-06-24 13:00] VITALS: BP 113/64
[2022-06-24 16:48] VITALS: BP 116/77
[2022-06-24 22:00] VITALS: BP 110/65
[2022-06-25] MEDS: METHADONE HCL 10 MG TAB PO SCH ×2 (01:44→13:42)
[2022-06-25 05:00] VITALS: BP 120/70
[2022-06-25] MEDS: methylPREDNISolone SOD SUCC 40 MG/ML VL IV SCH ×4 (05:15→23:47)
[2022-06-25] MEDS: ALBUTEROL SULF 2.5 MG/0.5ML(0.5%) NEB SOLN NEB SCH ×3 (06:57→18:56)
[2022-06-25] MEDS: IPRATROPIUM BROM 0.5 MG/2.5ML INH SOL NEB SCH ×3 (06:57→18:56)
[2022-06-25] MEDS: ACETAMINOPHEN 325 MG TAB PO PRN ×2 (07:28→20:07)
[2022-06-25] MEDS: CLOZAPINE 100 MG PO SCH ×2 (08:35→21:11)
[2022-06-25] MEDS: PANTOPRAZOLE 40 MG TAB PO SCH (08:35)
[2022-06-25] MEDS: cefTRIAXone 1GM/50ML D5W 50 ML IV SCH (08:35)
[2022-06-25] MEDS: ATORVASTATIN 20 MG TAB PO SCH (08:35)
[2022-06-25] MEDS: AZITHROMYCIN 250 MG TAB PO SCH (08:36)
[2022-06-25] MEDS: FLUoxetine HCL 20 MG CAP PO SCH (08:36)
[2022-06-25] MEDS: ENOXAPARIN SOD 40 MG/0.4 ML SYRINGE SC SCH (08:36)
[2022-06-25] MEDS: HYDROcodone-ACET 5/325MG TAB PO PRN ×2 (11:16→17:54)
[2022-06-25] MEDS ORDERED: PRED20TA2 PO ×2 (12:36→12:37)
[2022-06-25 13:00] VITALS: BP 113/68
[2022-06-25 17:00] VITALS: BP 117/79
[2022-06-25 18:55] VITALS: BP 117/79
[2022-06-25] MEDS: TEMAZEPAM 15 MG CAP PO PRN (21:10)
[2022-06-25 21:48] VITALS: BP 113/65
[2022-06-26] MEDS: METHADONE HCL 10 MG TAB PO SCH ×2 (01:25→14:06)
[2022-06-26 04:32] VITALS: BP 118/72
[2022-06-26] MEDS: methylPREDNISolone SOD SUCC 40 MG/ML VL IV SCH ×2 (05:12→13:11)
[2022-06-26] MEDS: HYDROcodone-ACET 5/325MG TAB PO PRN ×2 (05:20→09:33)
[2022-06-26] MEDS: ALBUTEROL SULF 2.5 MG/0.5ML(0.5%) NEB SOLN NEB SCH ×2 (06:02→11:06)
[2022-06-26] MEDS: IPRATROPIUM BROM 0.5 MG/2.5ML INH SOL NEB SCH ×2 (06:02→11:06)
[2022-06-26 08:00] VITALS: BP 128/78
[2022-06-26] MEDS: ENOXAPARIN SOD 40 MG/0.4 ML SYRINGE SC SCH (09:29)
[2022-06-26] MEDS: cefTRIAXone 1GM/50ML D5W 50 ML IV SCH (09:29)
[2022-06-26] MEDS: PANTOPRAZOLE 40 MG TAB PO SCH (09:30)
[2022-06-26] MEDS: AZITHROMYCIN 250 MG TAB PO SCH (09:30)
[2022-06-26] MEDS: FLUoxetine HCL 20 MG CAP PO SCH (09:30)
[2022-06-26] MEDS: ATORVASTATIN 20 MG TAB PO SCH (09:30)
[2022-06-26] MEDS: CLOZAPINE 100 MG PO SCH (09:30)
[2022-06-26 12:00] VITALS: BP 141/79
[2022-06-26 16:00] VITALS: BP 141/93
== END 2022-06-26 16:00 | disposition home or self-care (01) | DRG 133 ==
LOC: EDBD 16:57 → ER 16:57 → TELE 22:46 → TELE-CENTR 06-20 21:00 → CENTRAL 06-21 23:50
PROVIDERS: ADMIT Nurse Practitioner; ATTEND Nurse Practitioner Acute Care
PROC: 05HA33Z Insertion of Infusion Device into Left Brachial Vein, Percutaneous Approach (ICD-10-PCS; principal; 2022-06-19)
PROC: B54NZZA Ultrasonography of Left Upper Extremity Veins, Guidance (ICD-10-PCS; 2022-06-19)
DX: J96.01 Acute respiratory failure with hypoxia (principal); N17.0 Acute kidney failure with tubular necrosis; R57.9 Shock, unspecified; E43 Unspecified severe protein-calorie malnutrition; E86.0 Dehydration; E11.22 Type 2 diabetes mellitus with diabetic chronic kidney disease; E86.1 Hypovolemia; I50.9 Heart failure, unspecified; I13.0 Hypertensive heart and chronic kidney disease with heart failure and stage 1 through stage 4 chronic kidney disease, or unspecified chronic kidney disease; E66.9 Obesity, unspecified; F20.9 Schizophrenia, unspecified; J98.11 Atelectasis; N18.9 Chronic kidney disease, unspecified; Z20.822 Contact with and (suspected) exposure to COVID-19; F17.210 Nicotine dependence, cigarettes, uncomplicated; F32.A Depression, unspecified; F41.9 Anxiety disorder, unspecified; K21.9 Gastro-esophageal reflux disease without esophagitis; R79.89 Other specified abnormal findings of blood chemistry; Z68.31 Body mass index [BMI] 31.0-31.9, adult; Z86.16 Personal history of COVID-19
CPT/HCPCS: 36415; 36600; 71045; 71046; 78582; 80048; 80053; 81001; 82553; 82805; 82962; 83605; 83735; 83880; 84484; 85007; 85025; 85027; 85379; 87040; 87070; 87205; 87426; 87804; 87807; 93005; 93970; 94640; 96365; 96366; 96367; 96368; 96372; 96375; 97163; 99291; G0378; J0696; J1956